=== PATIENT | male | born 1955 | race Caucasian/White ===

== ENCOUNTER 2019-07-22 13:50 | Day surgery (SDC) | payer SELFPAY ==
[~2019-07-22] VITALS: Ht 175.3 cm; Wt 82.9 kg
[~2019-07-22 13:50] MED LIST: ASPI325 PO; Adult Low Dose81 MG PO; Aspir 8181 MG PO; CARV6.25 PO; Catapres0.1 MG PO; DEXL60CA3; INSLIS75I; LISI20 PO; LOSA25 PO; Prinivil10 MG PO; SPIR25 PO; ZESTORETIC 20-121 EA PO
[2019-07-22] MEDS ORDERED: Prinivil10 MG (15:12)
[2019-07-22] MEDS ORDERED: OMEPRAZOLE20 M1 PO (15:13)
== END 2019-07-22 17:37 | disposition home or self-care (01) ==
LOC: ORSCSDS 13:50
PROVIDERS: Student in an Organized Health Care Education/Training Program
PROC: 3E0H8GC Introduction of Other Therapeutic Substance into Lower GI, Via Natural or Artificial Opening Endoscopic (ICD-10-PCS; principal; 2019-07-22 15:15)
PROC: 0DBN8ZX Excision of Sigmoid Colon, Via Natural or Artificial Opening Endoscopic, Diagnostic (ICD-10-PCS; principal; 2019-07-22 15:15)
DX: R93.5 Abnormal findings on diagnostic imaging of other abdominal regions, including retroperitoneum (principal); D12.5 Benign neoplasm of sigmoid colon; K57.30 Diverticulosis of large intestine without perforation or abscess without bleeding; K64.8 Other hemorrhoids; I10 Essential (primary) hypertension; K21.9 Gastro-esophageal reflux disease without esophagitis; Z79.899 Other long term (current) drug therapy; Z79.82 Long term (current) use of aspirin
CPT/HCPCS: 88305; J2704; J7120

== ENCOUNTER 2019-11-23 02:17 | Day surgery (SDC) | payer SELFPAY ==
[~2019-11-23 02:17] MED LIST changes: +OMEPRAZOLE20 M1 PO; +Prinivil10 MG
[2019-11-23] MEDS ORDERED: RILUZOLE50 MG PO (10:17)
[2019-11-23] MEDS ORDERED: Robaxin750 MG PO (10:17)
== END 2019-11-23 09:52 | disposition home or self-care (01) ==
LOC: ATC 02:17
DX: A44.0 Systemic bartonellosis (principal); A69.20 Lyme disease, unspecified; G12.21 Amyotrophic lateral sclerosis; M62.81 Muscle weakness (generalized); R13.10 Dysphagia, unspecified; R25.3 Fasciculation; Z88.8 Allergy status to other drugs, medicaments and biological substances; Z79.899 Other long term (current) drug therapy
CPT/HCPCS: 99212

== ENCOUNTER 2019-11-28 11:53 | Observation (INO) | payer SELFPAY ==
[~2019-11-28] VITALS: Ht 175.3 cm; Wt 78.4 kg
[~2019-11-28 11:53] MED LIST changes: -Prinivil10 MG; +RILUZOLE50 MG PO; +Robaxin750 MG PO
[2019-11-28 12:31] LABS: BASOPHILS ABSOLUTE AUTO 0.01 K/mm3 (0.00-0.23); BASOPHILS PERCENT AUTO 0 % (0-2); EOSINOPHILS PERCENT AUTO 0 % (0-6); Hematocrit 44.9 % (37.0-53.0); IMMATURE GRAN ABSOLUTE AUTO 0.05 K/mm3 (0.00-0.10); IMMATURE GRAN PERCENT AUTO 0 % (0-1); LYMPHOCYTES ABSOLUTE AUTO 2.01 K/mm3 (0.84-5.20); LYMPHOCYTES PERCENT AUTO 12 % (21-46); MONOCYTES ABSOLUTE AUTO 0.81 K/mm3 (0.16-1.47); MONOCYTES PERCENT AUTO 5 % (4-13); Mean Corpuscular HGB 31.6 pg (26.0-34.0); Mean Corpuscular HGB Conc 33.4 g/dL (31.5-36.5); Mean Corpuscular Volume 95 fL (80-100); Mean Platelet Volume 9.5 fL (9.1-12.4); NEUTROPHILS ABSOLUTE AUTO 13.43 K/mm3 (1.96-9.15); NEUTROPHILS PERCENT AUTO 82 % (41-73); Platelet Count 400 K/mm3 (150-400); RDW Coefficient Variation 13.2 % (11.7-14.2); RDW Standard Deviation 46.6 fL (35.1-46.3); Red Blood Cell Count 4.75 M/mm3 (4.30-5.90); White Blood Cell Count 16.31 K/mm3 (4.00-11.30)
[2019-11-28 12:47] LABS: Alanine Aminotransfer (ALT/SGP 34 U/L (12-78); Albumin, Blood 3.2 g/dL (3.4-5.0); Albumin/Globulin Ratio 0.9 (0.8-1.8); Alk Phos 85 U/L (50-136); Anion Gap 4 mmol/L (6-16); Aspartate Aminotrans (AST/SGOT 23 U/L (12-37); Bilirubin, Total 0.6 mg/dL (0.1-1.0); Blood Urea Nitrogen 18 mg/dL (8-24); Bun/Creatinine Ratio 26.5 (12.0-20.0); CO2, Blood 34 mmol/L (21-32); Calcium, Blood 9.4 mg/dL (8.5-10.1); Chloride, Blood 99 mmol/L (98-108); Creatinine, Blood 0.68 mg/dL (0.60-1.20); Globulin, Blood 3.6 g/dL (2.2-4.0); Glomerular Filtration Rate >60 (60-); Glucose, Blood 95 mg/dL (70-99); Potassium, Blood 4.1 mmol/L (3.5-5.5); Sodium, Blood 137 mmol/L (136-145); Total Protein, Blood 6.8 g/dL (6.4-8.2)
[2019-11-28] MEDS ORDERED: CYCL10 PO (13:18)
[2019-11-28 15:35] LABS: International Normalized Ratio 1.11; Prothrombin Time Results 11.8 Sec (9.7-11.5)
[2019-11-28] MEDS ORDERED: CLON.1 PO (16:34)
[2019-11-28] MEDS ORDERED: MIRT15 PO (16:35)
[2019-11-28] MEDS ORDERED: NYST100000 SS (16:36)
--- NOTE | 2019-11-29 06:45 | NUR ---
SHIFT SUMMARY PT WAS A NEW ADMIT DURING THE NIGHT, ARRIVING ON THE FLOOR AT 1943. PT WAS ADMITTED FOR WORSENING DYSPHAGIA R/T A HX OF ALS, AND IS WAITING FOR A PEG TUBE PLACEMENT. HE IS A&O X 3, AND A SBA/INDEPENDENT IN THE ROOM. PT DENIED ANY COMPLAINTS OF PAIN, NAUSEA OR SOB DURING THE NIGHT. PT'S BP WAS ELEVATED DURING THE NIGHT, IN THE 180S SYSTOLICALLY DURING AM VITALS. PT WILL BE MEDICATED WITH PRN HYDRALAZINE FOR BP. ALL OTHER VITALS STABLE. PT RECEIVED ONE BAG CLINIMIX DURING THE NIGHT. PT'S SON REMAINED AT BEDSIDE THROUGH THE NIGHT. THE PT'S SON AND WITNESSED THE PT'S ADVANCED DIRECTIVE, AND A COPY PLACED IN THE CHART. NO OTHER ACUTE CHANGES IN PT CONDITION NOTED. WILL CONTINUE TO MONITOR AND TREAT PER EMAR UNTIL HAND OFF TO DAY SHIFT RN.
--- NOTE | 2019-11-29 09:53 | NUR ---
PT INTO STEP VIA BED FROM RADIOLOGY. VSS. NO C/O PAIN OR NAUSEA. PT LYING ON RIDE SIDE AND STATES COMFORT. DENIES FOOD AND DRINK AT THIS TIME AT BEDSIDE. WILL CONTINUE TO MONITOR.
--- NOTE | 2019-11-29 12:40 | NUR ---
Initial palliative care consult: Met with Bobby and his Michelle in his room this afternoon. They are waiting for him to go to surgery for a PEG tube placement this afternoon. He has a history of ALS, TIA, SHANELLE, HTN, GERD and he has lost the ability to swallow recently. His neurologist suggested that he have a PEG tube placed for nutrition. Bobby filled out an AD yesterday with his wishes and a copy of this is on the chart. Michelle will be his health care accounting representative. Discussed option of filling out a POLST form as well as this is why PC received a PC referral. POLST education given with questions answered. They are very hesitant to fill out the POLST and at this time are declining to fill one out. He wishes to maintain his full code status. He stated that his knows what he wants as the AD was completed yesterday. He reports that as his ALS progresses he may consider filling out a POLST but not at this time. Praised him for completing the AD which his reports he has been hesitant to do until yesterday. They were polite but dismissive of this underwriter mortgage loan. They are awaiting his PEG placement. PC will remain available.
--- NOTE | 2019-11-29 14:32 | NUR ---
TACHYCARDIA NOTED, THREE LEAD EKG PRINTED FOR ANESTHESIOLGIST TO REVIEW. PATIENT DENIES CHEST PAIN, SOB OR LIGHTHEADEDNESS. NO C/O VERBALIZED EXCEPT FOR CHRONIC DISCOMFORT TO MOUTH AND THROAT. AND SON AT BEDSIDE. REPORT GIVEN TO AGGIE MARTINEZ RN.
--- NOTE | 2019-11-29 15:14 | NUR ---
11/29/19 1514 ZORAN KENNEDY History, Chart, Medications and Allergies reviewed before start of procedure. 3-LEAD EKG REVIEWED WITH PHYSICIAN PRIOR TO START OF PROCEDURE. O2 VIA N/C INTACT THROUGHOUT SEDATION/PROCEDURE. MONITOR INTACT WITH CONTINUOUS PULSE OXIMETRY AND INTERMITTENT BP. MAC WITH DR. TEJEDA.
--- NOTE | 2019-11-29 18:31 | NUR ---
PATIENT STARTED OUT THE SHIFT WITH EXTREME HYPERTENSION. IT TOOK SEVERAL DOSES AND DOSE INCREASES TO GET HIS BP WITHIN NORMAL LIMITS AND STABLE ENOUGH TO PROCEED WITH THE PEG TUBE PLACEMENT. THE PATIENT RETURNED FROM THE PROCEEDURE AT APPROX 1600 AND WAS IN EXTREME PAIN. DR TOVAR WAS NOTIFIED AT 1620 AND ORDERS GIVEN TO GIVE THE PATIENT FENTANYL 25-50MCG Q4HR PRN. THE FIRST 25MCGs WERE GIVEN WITHOUT MUCH EFFECTIVENESS. THE SECOND WAS THEN GIVEN WITH THE SAME INEFFECTIVENESS. I CALLED DR TOVAR AGAIN TO INFORM HER OF THIS AND SHE SUGGESTED I CALL DR WHEELER, THE SURGEON INSTEAD. DR WHEELER CALLED AND NOTIFIED OF THE SITUATION AND PROVIDED ORDERS TO ADMIISTER 1-2MG IV DILAUDID Q2 PRN. 1MG GIVEN PER EMAR WITH EFFECTIVENESS. BOTH DR WHEELER AND DR TOVAR INFORMED THAT PATIENT DOES NOT INTEND TO DISCHARGE HOME TONIGHT. DR WHEELER STATED TO START THE PATIENT ON CONTINUOUS FEEDS STARTING AT 10ml/HR BETWEEN [id number]. THIS WAS EXPLAINED TO THE FAMILY, THEY UNDERSTAND THE ARRANGEMENT. PATIENT IS NOW DOZING OFF IN HIS BED. VITALS CONTINUE PER POST-OP. WILL CONTINUE TO MONITOR AND PROVIDE CARE NEEDED.
--- NOTE | 2019-11-29 21:53 | NUR ---
TUBE FEEDING STARTED NOW AT A RATE OF 10 ML/HR WITH 20 ML FLUSH EVERY 2 HOURS. PATIENT'S HEAD ELEVATED.
--- NOTE | 2019-11-30 07:44 | NUR ---
SHIFT SUMMARY PATIENT ALERT AND ORIENTED. SLEPT MOST OF THE NIGHT. ONLY MEDICATED ONCE PER EMAR FOR PAIN. TUBE FEEDING STARTED, PATIENT TOLERATING WELL, CURRENTLY RUNNING AT 30 ML/HR. IV AND PICC PATENT AND FLUSHED. BED IN LOWEST POSITION WITH WHEELS LOCKED. CALL LIGHT WITHIN REACH. REPORT GIVEN TO ONCOMING DELROY.
--- NOTE | 2019-11-30 12:27 | NUR ---
DISCHARGE INSTRUCTIONS EXPLAINED TO PATIENT, PATIENTS AND SON. EDUCATIONAL MATERIAL PROVIDED REGARDING TUBE FEEDS AND CARE FOR PEG TUBES. PATIENT, AND SON WERE INSTRUCTED AND DEMONSTRATED HOW TO GIVE A BOLUS FEED WITH A FLUSH AND DID VERY WELL. DRESSING TO PEG TUBE SITE CHANGED. ALL QUESTIONS ANSWERED. PATIENT LEFT HOME WITH AND SON AT 1208 WITH ASSISTANCE OF WHEELCHAIR AND TRACK INSPECTING SUPERVISOR.
[2019-12-04] MEDS ORDERED: BENADRYL25 MG PO (15:27)
[2019-12-04] MEDS ORDERED: ASPI81CH PO (15:27)
[2019-12-04] MEDS ORDERED: Miralax17 GM PT (17:00)
== END 2019-11-30 12:08 | disposition home or self-care (01) ==
LOC: ER 11:53 → ERHOLD 11:54 → MEDS 11:54 → ENPENDDIS 11-30 11:00 → MEDS 11-30 12:08
PROVIDERS: Physician Assistant; Surgery; ADMIT Hospitalist
PROC: 0DH63UZ Insertion of Feeding Device into Stomach, Percutaneous Approach (ICD-10-PCS; principal; 2019-11-29 15:00)
DX: G12.21 Amyotrophic lateral sclerosis (principal); K26.9 Duodenal ulcer, unspecified as acute or chronic, without hemorrhage or perforation; K21.9 Gastro-esophageal reflux disease without esophagitis; I10 Essential (primary) hypertension; G47.33 Obstructive sleep apnea (adult) (pediatric); Z66 Do not resuscitate; Z79.82 Long term (current) use of aspirin; Z79.899 Other long term (current) drug therapy; Z86.73 Personal history of transient ischemic attack (TIA), and cerebral infarction without residual deficits; Z88.8 Allergy status to other drugs, medicaments and biological substances
CPT/HCPCS: 71046; 80053; 85025; 85610; 93005; 93010; 96361; 96365; 96366; 96375; 96376; 99285-25; C1769; G0378; J0360; J1170; J2704; J3010; J7030

== ENCOUNTER 2019-12-05 22:30 | Emergency (ER) | payer SELFPAY ==
[~2019-12-05] VITALS: Ht 175.3 cm; Wt 74.8 kg
[~2019-12-05 22:30] MED LIST changes: +ASPI81CH PO; +BENADRYL25 MG PO; +CLON.1 PO; +CYCL10 PO; +MIRT15 PO; +Miralax17 GM PT; +NYST100000 SS
== END 2019-12-06 02:06 | disposition home or self-care (01) ==
LOC: ER 22:30
DX: K59.00 Constipation, unspecified (principal); I10 Essential (primary) hypertension; K21.9 Gastro-esophageal reflux disease without esophagitis; Z79.899 Other long term (current) drug therapy
CPT/HCPCS: 51701; 51798; 74018; 99283-25

== ENCOUNTER 2019-12-07 00:22 | Day surgery (SDC) | payer SELFPAY | END 2019-12-07 11:43 | disposition home or self-care (01) | LOC: ATC 00:22 | DX: A44.0 Systemic bartonellosis (principal); A69.20 Lyme disease, unspecified; G12.21 Amyotrophic lateral sclerosis; M62.81 Muscle weakness (generalized); R13.10 Dysphagia, unspecified; R25.3 Fasciculation; Z88.8 Allergy status to other drugs, medicaments and biological substances; Z79.899 Other long term (current) drug therapy | CPT/HCPCS: 99211 ==

== ENCOUNTER 2019-12-13 00:43 | Day surgery (SDC) | payer SELFPAY | END 2019-12-13 11:29 | disposition home or self-care (01) | LOC: ATC 00:43 | DX: A44.0 Systemic bartonellosis (principal); A69.20 Lyme disease, unspecified; G12.21 Amyotrophic lateral sclerosis; M62.81 Muscle weakness (generalized); R13.10 Dysphagia, unspecified; R25.3 Fasciculation; Z88.8 Allergy status to other drugs, medicaments and biological substances; Z79.899 Other long term (current) drug therapy | CPT/HCPCS: 99211 ==

== ENCOUNTER 2020-02-05 05:43 | Emergency (ER) | payer SELFPAY ==
[~2020-02-05] VITALS: Ht 175.3 cm; Wt 81.7 kg
[2020-02-05 06:25] LABS: BASOPHILS ABSOLUTE AUTO 0.03 K/mm3 (0.00-0.23); BASOPHILS PERCENT AUTO 0 % (0-2); EOSINOPHILS ABSOLUTE AUTO 0.07 K/mm3 (0.00-0.68); EOSINOPHILS PERCENT AUTO 1 % (0-6); Hematocrit 41.7 % (37.0-53.0); Hemoglobin 13.4 g/dL (13.5-17.5); IMMATURE GRAN ABSOLUTE AUTO 0.03 K/mm3 (0.00-0.10); IMMATURE GRAN PERCENT AUTO 0 % (0-1); LYMPHOCYTES ABSOLUTE AUTO 1.51 K/mm3 (0.84-5.20); LYMPHOCYTES PERCENT AUTO 20 % (21-46); MONOCYTES ABSOLUTE AUTO 0.72 K/mm3 (0.16-1.47); MONOCYTES PERCENT AUTO 9 % (4-13); Mean Corpuscular HGB 31.9 pg (26.0-34.0); Mean Corpuscular HGB Conc 32.1 g/dL (31.5-36.5); Mean Corpuscular Volume 99 fL (80-100); Mean Platelet Volume 9.4 fL (9.1-12.4); NEUTROPHILS ABSOLUTE AUTO 5.37 K/mm3 (1.96-9.15); NEUTROPHILS PERCENT AUTO 70 % (41-73); Platelet Count 412 K/mm3 (150-400); RDW Coefficient Variation 15.9 % (11.7-14.2); RDW Standard Deviation 57.8 fL (35.1-46.3); White Blood Cell Count 7.73 K/mm3 (4.00-11.30)
[2020-02-05] MEDS ORDERED: TYGACIL (06:27)
[2020-02-05] MEDS ORDERED: RIFADIN IV (06:27)
[2020-02-05 06:40] LABS: Alanine Aminotransfer (ALT/SGP 68 U/L (12-78); Albumin, Blood 2.6 g/dL (3.4-5.0); Albumin/Globulin Ratio 0.8 (0.8-1.8); Alk Phos 57 U/L (50-136); Anion Gap 4 mmol/L (6-16); Aspartate Aminotrans (AST/SGOT 27 U/L (12-37); Bilirubin, Total 0.5 mg/dL (0.1-1.0); Blood Urea Nitrogen 9 mg/dL (8-24); Bun/Creatinine Ratio 13.2 (12.0-20.0); CO2, Blood 33 mmol/L (21-32); Calcium, Blood 8.8 mg/dL (8.5-10.1); Chloride, Blood 102 mmol/L (98-108); Creatinine, Blood 0.68 mg/dL (0.60-1.20); Globulin, Blood 3.4 g/dL (2.2-4.0); Glomerular Filtration Rate >60 (60-); Glucose, Blood 127 mg/dL (70-99); Sodium, Blood 139 mmol/L (136-145)
[2020-02-05 08:20] LABS: PCO2 Arterial 53.5 mmHg (35-45); PO2 Arterial 94.1 mmHg (80-100)
== END 2020-02-05 09:05 | disposition home or self-care (01) ==
LOC: ER 05:43
PROVIDERS: Emergency Medicine
DX: R06.02 Shortness of breath (principal); G12.21 Amyotrophic lateral sclerosis; I10 Essential (primary) hypertension; K21.9 Gastro-esophageal reflux disease without esophagitis; G47.33 Obstructive sleep apnea (adult) (pediatric); Z86.73 Personal history of transient ischemic attack (TIA), and cerebral infarction without residual deficits; Z79.899 Other long term (current) drug therapy
CPT/HCPCS: 36600; 71046; 80053; 82803; 85025; 93005; 93010; 99285-25

== ENCOUNTER 2020-02-07 00:09 | Day surgery (SDC) | payer SELFPAY ==
[~2020-02-07 00:09] MED LIST changes: +RIFADIN IV; +TYGACIL
[2020-02-07 12:23] LABS: BASOPHILS ABSOLUTE AUTO 0.05 K/mm3 (0.00-0.23); BASOPHILS PERCENT AUTO 1 % (0-2); EOSINOPHILS ABSOLUTE AUTO 0.04 K/mm3 (0.00-0.68); EOSINOPHILS PERCENT AUTO 1 % (0-6); Hematocrit 42.9 % (37.0-53.0); Hemoglobin 13.8 g/dL (13.5-17.5); IMMATURE GRAN ABSOLUTE AUTO 0.01 K/mm3 (0.00-0.10); IMMATURE GRAN PERCENT AUTO 0 % (0-1); LYMPHOCYTES ABSOLUTE AUTO 1.42 K/mm3 (0.84-5.20); LYMPHOCYTES PERCENT AUTO 22 % (21-46); MONOCYTES ABSOLUTE AUTO 0.42 K/mm3 (0.16-1.47); MONOCYTES PERCENT AUTO 6 % (4-13); Mean Corpuscular HGB 32.3 pg (26.0-34.0); Mean Corpuscular HGB Conc 32.2 g/dL (31.5-36.5); Mean Corpuscular Volume 101 fL (80-100); Mean Platelet Volume 10.2 fL (9.1-12.4); NEUTROPHILS ABSOLUTE AUTO 4.58 K/mm3 (1.96-9.15); NEUTROPHILS PERCENT AUTO 70 % (41-73); Platelet Count 430 K/mm3 (150-400); RDW Coefficient Variation 15.6 % (11.7-14.2); RDW Standard Deviation 57.6 fL (35.1-46.3); Red Blood Cell Count 4.27 M/mm3 (4.30-5.90); White Blood Cell Count 6.52 K/mm3 (4.00-11.30)
[2020-02-07 12:42] LABS: Alanine Aminotransfer (ALT/SGP 103 U/L (12-78); Albumin, Blood 2.7 g/dL (3.4-5.0); Albumin/Globulin Ratio 0.8 (0.8-1.8); Alk Phos 60 U/L (50-136); Anion Gap 6 mmol/L (6-16); Aspartate Aminotrans (AST/SGOT 39 U/L (12-37); Bilirubin, Total 0.4 mg/dL (0.1-1.0); Blood Urea Nitrogen 12 mg/dL (8-24); Bun/Creatinine Ratio 18.7 (12.0-20.0); CO2, Blood 33 mmol/L (21-32); Calcium, Blood 8.5 mg/dL (8.5-10.1); Chloride, Blood 100 mmol/L (98-108); Creatinine, Blood 0.64 mg/dL (0.60-1.20); Globulin, Blood 3.5 g/dL (2.2-4.0); Glomerular Filtration Rate >60 (60-); Glucose, Blood 145 mg/dL (70-99); Potassium, Blood 3.9 mmol/L (3.5-5.5); Sodium, Blood 139 mmol/L (136-145); Total Protein, Blood 6.2 g/dL (6.4-8.2)
== END 2020-02-07 12:06 | disposition home or self-care (01) ==
LOC: ATC 00:09
PROVIDERS: Naturopath
DX: G12.21 Amyotrophic lateral sclerosis (principal); D64.9 Anemia, unspecified; Z88.8 Allergy status to other drugs, medicaments and biological substances; A44.9 Bartonellosis, unspecified; A69.20 Lyme disease, unspecified
CPT/HCPCS: 36592; 80053; 85025

== ENCOUNTER 2020-02-14 01:09 | Day surgery (SDC) | payer SELFPAY ==
[2020-02-14 12:47] LABS: BASOPHILS ABSOLUTE AUTO 0.03 K/mm3 (0.00-0.23); BASOPHILS PERCENT AUTO 0 % (0-2); EOSINOPHILS ABSOLUTE AUTO 0.02 K/mm3 (0.00-0.68); EOSINOPHILS PERCENT AUTO 0 % (0-6); Hematocrit 44.4 % (37.0-53.0); Hemoglobin 14.2 g/dL (13.5-17.5); IMMATURE GRAN ABSOLUTE AUTO 0.04 K/mm3 (0.00-0.10); IMMATURE GRAN PERCENT AUTO 1 % (0-1); LYMPHOCYTES ABSOLUTE AUTO 1.18 K/mm3 (0.84-5.20); LYMPHOCYTES PERCENT AUTO 15 % (21-46); MONOCYTES ABSOLUTE AUTO 0.48 K/mm3 (0.16-1.47); MONOCYTES PERCENT AUTO 6 % (4-13); Mean Corpuscular HGB 32.5 pg (26.0-34.0); Mean Corpuscular Volume 102 fL (80-100); Mean Platelet Volume 10.2 fL (9.1-12.4); NEUTROPHILS ABSOLUTE AUTO 6.35 K/mm3 (1.96-9.15); NEUTROPHILS PERCENT AUTO 78 % (41-73); Platelet Count 412 K/mm3 (150-400); RDW Standard Deviation 56.7 fL (35.1-46.3); Red Blood Cell Count 4.37 M/mm3 (4.30-5.90)
[2020-02-14 13:09] LABS: Alanine Aminotransfer (ALT/SGP 57 U/L (12-78); Albumin, Blood 2.8 g/dL (3.4-5.0); Albumin/Globulin Ratio 0.8 (0.8-1.8); Alk Phos 54 U/L (50-136); Anion Gap 2 mmol/L (6-16); Aspartate Aminotrans (AST/SGOT 21 U/L (12-37); Bilirubin, Total 0.3 mg/dL (0.1-1.0); Blood Urea Nitrogen 13 mg/dL (8-24); CO2, Blood 36 mmol/L (21-32); Calcium, Blood 8.7 mg/dL (8.5-10.1); Chloride, Blood 102 mmol/L (98-108); Creatinine, Blood 0.69 mg/dL (0.60-1.20); Globulin, Blood 3.5 g/dL (2.2-4.0); Glomerular Filtration Rate >60 (60-); Glucose, Blood 116 mg/dL (70-99); Potassium, Blood 4.2 mmol/L (3.5-5.5); Sodium, Blood 140 mmol/L (136-145); Total Protein, Blood 6.3 g/dL (6.4-8.2)
[2020-02-15 22:09] LABS: FREE TESTOSTERONE(DIRECT) 5.8 pg/mL (6.6-18.1); TESTOSTERONE, SERUM 1037 ng/dL (264-916)
== END 2020-02-14 17:16 | disposition home or self-care (01) ==
LOC: ATC 01:09
PROVIDERS: Naturopath
DX: A69.20 Lyme disease, unspecified (principal); G12.21 Amyotrophic lateral sclerosis; M62.81 Muscle weakness (generalized); R25.3 Fasciculation; Z88.8 Allergy status to other drugs, medicaments and biological substances; Z79.82 Long term (current) use of aspirin; Z79.899 Other long term (current) drug therapy
CPT/HCPCS: 80053; 85025; 99211

== ENCOUNTER 2020-02-21 00:48 | Day surgery (SDC) | payer SELFPAY ==
[2020-02-21 11:57] LABS: BASOPHILS ABSOLUTE AUTO 0.04 K/mm3 (0.00-0.23); BASOPHILS PERCENT AUTO 1 % (0-2); EOSINOPHILS ABSOLUTE AUTO 0.03 K/mm3 (0.00-0.68); EOSINOPHILS PERCENT AUTO 0 % (0-6); Hematocrit 46.5 % (37.0-53.0); IMMATURE GRAN ABSOLUTE AUTO 0.05 K/mm3 (0.00-0.10); IMMATURE GRAN PERCENT AUTO 1 % (0-1); LYMPHOCYTES ABSOLUTE AUTO 1.15 K/mm3 (0.84-5.20); LYMPHOCYTES PERCENT AUTO 13 % (21-46); MONOCYTES ABSOLUTE AUTO 0.56 K/mm3 (0.16-1.47); MONOCYTES PERCENT AUTO 6 % (4-13); Mean Corpuscular HGB 32.5 pg (26.0-34.0); Mean Corpuscular HGB Conc 32.3 g/dL (31.5-36.5); Mean Corpuscular Volume 101 fL (80-100); Mean Platelet Volume 10.5 fL (9.1-12.4); NEUTROPHILS ABSOLUTE AUTO 6.97 K/mm3 (1.96-9.15); NEUTROPHILS PERCENT AUTO 79 % (41-73); Platelet Count 346 K/mm3 (150-400); RDW Coefficient Variation 14.7 % (11.7-14.2); RDW Standard Deviation 55.5 fL (35.1-46.3); Red Blood Cell Count 4.61 M/mm3 (4.30-5.90)
[2020-02-21 12:13] LABS: Alanine Aminotransfer (ALT/SGP 31 U/L (12-78); Albumin, Blood 2.8 g/dL (3.4-5.0); Albumin/Globulin Ratio 0.8 (0.8-1.8); Alk Phos 54 U/L (50-136); Anion Gap 6 mmol/L (6-16); Aspartate Aminotrans (AST/SGOT 17 U/L (12-37); Bilirubin, Total 0.3 mg/dL (0.1-1.0); Blood Urea Nitrogen 15 mg/dL (8-24); Bun/Creatinine Ratio 20.8 (12.0-20.0); CO2, Blood 32 mmol/L (21-32); Calcium, Blood 8.6 mg/dL (8.5-10.1); Chloride, Blood 102 mmol/L (98-108); Creatinine, Blood 0.72 mg/dL (0.60-1.20); Globulin, Blood 3.6 g/dL (2.2-4.0); Glomerular Filtration Rate >60 (60-); Glucose, Blood 77 mg/dL (70-99); Potassium, Blood 4.1 mmol/L (3.5-5.5); Sodium, Blood 140 mmol/L (136-145); Total Protein, Blood 6.4 g/dL (6.4-8.2)
== END 2020-02-21 10:58 | disposition home or self-care (01) ==
LOC: ATC 00:48
PROVIDERS: Naturopath
DX: A44.9 Bartonellosis, unspecified (principal); A69.20 Lyme disease, unspecified; G12.21 Amyotrophic lateral sclerosis; R25.3 Fasciculation; R13.10 Dysphagia, unspecified; Z88.8 Allergy status to other drugs, medicaments and biological substances; Z79.899 Other long term (current) drug therapy
CPT/HCPCS: 36592; 80053; 85025

== ENCOUNTER 2020-02-28 00:22 | Day surgery (SDC) | payer SELFPAY ==
[2020-02-28 13:37] LABS: BASOPHILS ABSOLUTE AUTO 0.03 K/mm3 (0.00-0.23); BASOPHILS PERCENT AUTO 0 % (0-2); EOSINOPHILS ABSOLUTE AUTO 0.04 K/mm3 (0.00-0.68); EOSINOPHILS PERCENT AUTO 0 % (0-6); Hemoglobin 15.1 g/dL (13.5-17.5); IMMATURE GRAN ABSOLUTE AUTO 0.04 K/mm3 (0.00-0.10); IMMATURE GRAN PERCENT AUTO 0 % (0-1); LYMPHOCYTES ABSOLUTE AUTO 1.21 K/mm3 (0.84-5.20); LYMPHOCYTES PERCENT AUTO 12 % (21-46); MONOCYTES ABSOLUTE AUTO 0.47 K/mm3 (0.16-1.47); MONOCYTES PERCENT AUTO 5 % (4-13); Mean Corpuscular HGB 32.5 pg (26.0-34.0); Mean Corpuscular HGB Conc 32.1 g/dL (31.5-36.5); Mean Corpuscular Volume 101 fL (80-100); Mean Platelet Volume 11.1 fL (9.1-12.4); NEUTROPHILS ABSOLUTE AUTO 8.25 K/mm3 (1.96-9.15); NEUTROPHILS PERCENT AUTO 82 % (41-73); Platelet Count 335 K/mm3 (150-400); RDW Coefficient Variation 14.5 % (11.7-14.2); RDW Standard Deviation 53.9 fL (35.1-46.3); Red Blood Cell Count 4.64 M/mm3 (4.30-5.90); White Blood Cell Count 10.04 K/mm3 (4.00-11.30)
[2020-02-28 13:51] LABS: Alanine Aminotransfer (ALT/SGP 26 U/L (12-78); Albumin, Blood 2.9 g/dL (3.4-5.0); Albumin/Globulin Ratio 0.8 (0.8-1.8); Alk Phos 58 U/L (50-136); Anion Gap 4 mmol/L (6-16); Aspartate Aminotrans (AST/SGOT 18 U/L (12-37); Bilirubin, Total 0.4 mg/dL (0.1-1.0); Blood Urea Nitrogen 12 mg/dL (8-24); Bun/Creatinine Ratio 18.5 (12.0-20.0); CO2, Blood 33 mmol/L (21-32); Calcium, Blood 8.9 mg/dL (8.5-10.1); Chloride, Blood 101 mmol/L (98-108); Creatinine, Blood 0.65 mg/dL (0.60-1.20); Globulin, Blood 3.6 g/dL (2.2-4.0); Glomerular Filtration Rate >60 (60-); Glucose, Blood 78 mg/dL (70-99); Sodium, Blood 138 mmol/L (136-145); Total Protein, Blood 6.5 g/dL (6.4-8.2)
== END 2020-02-28 11:45 | disposition home or self-care (01) ==
LOC: ATC 00:22
PROVIDERS: Naturopath
DX: E29.1 Testicular hypofunction (principal); Z88.8 Allergy status to other drugs, medicaments and biological substances; Z79.82 Long term (current) use of aspirin; Z79.899 Other long term (current) drug therapy
CPT/HCPCS: 36592; 80053; 85025

== ENCOUNTER 2020-03-06 00:25 | Day surgery (SDC) | payer SELFPAY ==
[2020-03-06 12:32] LABS: BASOPHILS ABSOLUTE AUTO 0.03 K/mm3 (0.00-0.23); BASOPHILS PERCENT AUTO 0 % (0-2); EOSINOPHILS ABSOLUTE AUTO 0.04 K/mm3 (0.00-0.68); EOSINOPHILS PERCENT AUTO 0 % (0-6); Hematocrit 46.6 % (37.0-53.0); Hemoglobin 14.9 g/dL (13.5-17.5); IMMATURE GRAN ABSOLUTE AUTO 0.04 K/mm3 (0.00-0.10); IMMATURE GRAN PERCENT AUTO 0 % (0-1); LYMPHOCYTES ABSOLUTE AUTO 1.56 K/mm3 (0.84-5.20); LYMPHOCYTES PERCENT AUTO 16 % (21-46); MONOCYTES ABSOLUTE AUTO 0.58 K/mm3 (0.16-1.47); MONOCYTES PERCENT AUTO 6 % (4-13); Mean Corpuscular Volume 100 fL (80-100); Mean Platelet Volume 10.8 fL (9.1-12.4); NEUTROPHILS ABSOLUTE AUTO 7.72 K/mm3 (1.96-9.15); NEUTROPHILS PERCENT AUTO 78 % (41-73); Platelet Count 342 K/mm3 (150-400); RDW Coefficient Variation 14.2 % (11.7-14.2); RDW Standard Deviation 52.7 fL (35.1-46.3); Red Blood Cell Count 4.65 M/mm3 (4.30-5.90); White Blood Cell Count 9.97 K/mm3 (4.00-11.30)
[2020-03-06 12:52] LABS: Alanine Aminotransfer (ALT/SGP 27 U/L (12-78); Albumin, Blood 2.8 g/dL (3.4-5.0); Albumin/Globulin Ratio 0.8 (0.8-1.8); Alk Phos 59 U/L (50-136); Anion Gap 2 mmol/L (6-16); Aspartate Aminotrans (AST/SGOT 20 U/L (12-37); Bilirubin, Total 0.3 mg/dL (0.1-1.0); Blood Urea Nitrogen 14 mg/dL (8-24); Bun/Creatinine Ratio 18.9 (12.0-20.0); CO2, Blood 35 mmol/L (21-32); Calcium, Blood 8.4 mg/dL (8.5-10.1); Chloride, Blood 102 mmol/L (98-108); Creatinine, Blood 0.74 mg/dL (0.60-1.20); Globulin, Blood 3.6 g/dL (2.2-4.0); Glomerular Filtration Rate >60 (60-); Glucose, Blood 82 mg/dL (70-99); Potassium, Blood 4.1 mmol/L (3.5-5.5); Sodium, Blood 139 mmol/L (136-145); Total Protein, Blood 6.4 g/dL (6.4-8.2)
== END 2020-03-06 11:30 | disposition home or self-care (01) ==
LOC: ATC 00:25
PROVIDERS: Naturopath
DX: E29.1 Testicular hypofunction (principal); Z88.8 Allergy status to other drugs, medicaments and biological substances; Z79.899 Other long term (current) drug therapy; Z86.73 Personal history of transient ischemic attack (TIA), and cerebral infarction without residual deficits
CPT/HCPCS: 36592; 80053; 82670; 85025

== ENCOUNTER 2020-03-13 01:21 | Day surgery (SDC) | payer SELFPAY ==
[2020-03-13 11:52] LABS: BASOPHILS ABSOLUTE AUTO 0.03 K/mm3 (0.00-0.23); BASOPHILS PERCENT AUTO 0 % (0-2); EOSINOPHILS ABSOLUTE AUTO 0.04 K/mm3 (0.00-0.68); EOSINOPHILS PERCENT AUTO 0 % (0-6); Hematocrit 45.7 % (37.0-53.0); Hemoglobin 14.7 g/dL (13.5-17.5); IMMATURE GRAN ABSOLUTE AUTO 0.04 K/mm3 (0.00-0.10); IMMATURE GRAN PERCENT AUTO 0 % (0-1); LYMPHOCYTES ABSOLUTE AUTO 1.64 K/mm3 (0.84-5.20); LYMPHOCYTES PERCENT AUTO 16 % (21-46); MONOCYTES ABSOLUTE AUTO 0.72 K/mm3 (0.16-1.47); MONOCYTES PERCENT AUTO 7 % (4-13); Mean Corpuscular HGB 32.5 pg (26.0-34.0); Mean Corpuscular HGB Conc 32.2 g/dL (31.5-36.5); Mean Corpuscular Volume 101 fL (80-100); Mean Platelet Volume 10.1 fL (9.1-12.4); NEUTROPHILS ABSOLUTE AUTO 7.83 K/mm3 (1.96-9.15); NEUTROPHILS PERCENT AUTO 76 % (41-73); Platelet Count 341 K/mm3 (150-400); RDW Coefficient Variation 14.6 % (11.7-14.2); RDW Standard Deviation 54.8 fL (35.1-46.3); Red Blood Cell Count 4.53 M/mm3 (4.30-5.90)
[2020-03-13 12:00] LABS: Alanine Aminotransfer (ALT/SGP 25 U/L (12-78); Albumin, Blood 2.8 g/dL (3.4-5.0); Albumin/Globulin Ratio 0.8 (0.8-1.8); Alk Phos 58 U/L (50-136); Anion Gap 3 mmol/L (6-16); Aspartate Aminotrans (AST/SGOT 18 U/L (12-37); Bilirubin, Total 0.4 mg/dL (0.1-1.0); Blood Urea Nitrogen 17 mg/dL (8-24); Bun/Creatinine Ratio 22.9 (12.0-20.0); CO2, Blood 33 mmol/L (21-32); Calcium, Blood 8.9 mg/dL (8.5-10.1); Chloride, Blood 103 mmol/L (98-108); Creatinine, Blood 0.74 mg/dL (0.60-1.20); Globulin, Blood 3.7 g/dL (2.2-4.0); Glomerular Filtration Rate >60 (60-); Glucose, Blood 89 mg/dL (70-99); Potassium, Blood 4.2 mmol/L (3.5-5.5); Sodium, Blood 139 mmol/L (136-145); Total Protein, Blood 6.5 g/dL (6.4-8.2)
== END 2020-03-13 11:19 | disposition home or self-care (01) ==
LOC: ATC 01:21
PROVIDERS: Naturopath
DX: E29.1 Testicular hypofunction (principal); G12.21 Amyotrophic lateral sclerosis; A44.9 Bartonellosis, unspecified; A69.20 Lyme disease, unspecified; R13.10 Dysphagia, unspecified; R25.3 Fasciculation; Z88.8 Allergy status to other drugs, medicaments and biological substances; Z79.82 Long term (current) use of aspirin; Z79.899 Other long term (current) drug therapy
CPT/HCPCS: 36592; 80053; 85025

== ENCOUNTER 2020-03-27 01:51 | Day surgery (SDC) | payer SELFPAY ==
--- NOTE | 2020-03-27 11:42 | NUR ---
PT BP 153/110 AND HR 111, PT STATES HE HAS TAKEN HIS AM BP MEDS TODAY 03/27/20. PT STATES THAT BP HAS BEEN RUNNING THIS HIGH THE PAST COUPLE DAYS, PT STATES HE HAS HAD MORE PAIN RECENTLY, PT STATES HE HAS A MD APPOINTMENT NEXT WEEK AND WILL TALK TO MD ABOUT BP AND PAIN. PT EDUCATED ON HIGH BP CONCERNS, PT STATES UNDERSTANDING.
[2020-03-27 11:44] LABS: BASOPHILS ABSOLUTE AUTO 0.02 K/mm3 (0.00-0.23); BASOPHILS PERCENT AUTO 0 % (0-2); EOSINOPHILS ABSOLUTE AUTO 0.05 K/mm3 (0.00-0.68); EOSINOPHILS PERCENT AUTO 1 % (0-6); Hematocrit 46.2 % (37.0-53.0); Hemoglobin 14.6 g/dL (13.5-17.5); IMMATURE GRAN ABSOLUTE AUTO 0.05 K/mm3 (0.00-0.10); IMMATURE GRAN PERCENT AUTO 1 % (0-1); LYMPHOCYTES ABSOLUTE AUTO 1.18 K/mm3 (0.84-5.20); LYMPHOCYTES PERCENT AUTO 12 % (21-46); MONOCYTES ABSOLUTE AUTO 0.51 K/mm3 (0.16-1.47); MONOCYTES PERCENT AUTO 5 % (4-13); Mean Corpuscular HGB 32.3 pg (26.0-34.0); Mean Corpuscular HGB Conc 31.6 g/dL (31.5-36.5); Mean Corpuscular Volume 102 fL (80-100); Mean Platelet Volume 10.2 fL (9.1-12.4); NEUTROPHILS ABSOLUTE AUTO 8.04 K/mm3 (1.96-9.15); NEUTROPHILS PERCENT AUTO 82 % (41-73); Platelet Count 339 K/mm3 (150-400); RDW Standard Deviation 52.9 fL (35.1-46.3); Red Blood Cell Count 4.52 M/mm3 (4.30-5.90); White Blood Cell Count 9.85 K/mm3 (4.00-11.30)
[2020-03-27 11:59] LABS: Alanine Aminotransfer (ALT/SGP 25 U/L (12-78); Albumin, Blood 2.7 g/dL (3.4-5.0); Albumin/Globulin Ratio 0.7 (0.8-1.8); Alk Phos 60 U/L (50-136); Anion Gap 1 mmol/L (6-16); Aspartate Aminotrans (AST/SGOT 20 U/L (12-37); Bilirubin, Total 0.3 mg/dL (0.1-1.0); Blood Urea Nitrogen 16 mg/dL (8-24); Bun/Creatinine Ratio 20.8 (12.0-20.0); CO2, Blood 38 mmol/L (21-32); Chloride, Blood 101 mmol/L (98-108); Creatinine, Blood 0.77 mg/dL (0.60-1.20); Globulin, Blood 3.8 g/dL (2.2-4.0); Glomerular Filtration Rate >60 (60-); Glucose, Blood 108 mg/dL (70-99); Potassium, Blood 4.3 mmol/L (3.5-5.5); Sodium, Blood 140 mmol/L (136-145); Total Protein, Blood 6.5 g/dL (6.4-8.2)
== END 2020-03-27 11:22 | disposition home or self-care (01) ==
LOC: ATC 01:51
PROVIDERS: Naturopath
DX: A69.20 Lyme disease, unspecified (principal); A44.9 Bartonellosis, unspecified; R25.3 Fasciculation; G12.21 Amyotrophic lateral sclerosis; Z88.8 Allergy status to other drugs, medicaments and biological substances; Z79.899 Other long term (current) drug therapy; Z79.82 Long term (current) use of aspirin
CPT/HCPCS: 36592; 80053; 85025

== ENCOUNTER 2020-04-03 00:18 | Day surgery (SDC) | payer SELFPAY ==
[2020-04-03] MEDS ORDERED: CEFTRIAXON1 GM/50 M1 (11:44)
[2020-04-03 12:14] LABS: BASOPHILS ABSOLUTE AUTO 0.03 K/mm3 (0.00-0.23); BASOPHILS PERCENT AUTO 0 % (0-2); EOSINOPHILS ABSOLUTE AUTO 0.07 K/mm3 (0.00-0.68); EOSINOPHILS PERCENT AUTO 1 % (0-6); Hematocrit 45.9 % (37.0-53.0); Hemoglobin 14.4 g/dL (13.5-17.5); IMMATURE GRAN ABSOLUTE AUTO 0.03 K/mm3 (0.00-0.10); IMMATURE GRAN PERCENT AUTO 0 % (0-1); LYMPHOCYTES ABSOLUTE AUTO 1.61 K/mm3 (0.84-5.20); LYMPHOCYTES PERCENT AUTO 16 % (21-46); MONOCYTES ABSOLUTE AUTO 0.69 K/mm3 (0.16-1.47); MONOCYTES PERCENT AUTO 7 % (4-13); Mean Corpuscular HGB 31.8 pg (26.0-34.0); Mean Corpuscular HGB Conc 31.4 g/dL (31.5-36.5); Mean Corpuscular Volume 101 fL (80-100); Mean Platelet Volume 10.5 fL (9.1-12.4); NEUTROPHILS ABSOLUTE AUTO 7.98 K/mm3 (1.96-9.15); NEUTROPHILS PERCENT AUTO 77 % (41-73); Platelet Count 329 K/mm3 (150-400); RDW Coefficient Variation 13.6 % (11.7-14.2); RDW Standard Deviation 51.4 fL (35.1-46.3); Red Blood Cell Count 4.53 M/mm3 (4.30-5.90); White Blood Cell Count 10.41 K/mm3 (4.00-11.30)
[2020-04-03 12:32] LABS: Alanine Aminotransfer (ALT/SGP 26 U/L (12-78); Albumin, Blood 2.8 g/dL (3.4-5.0); Albumin/Globulin Ratio 0.8 (0.8-1.8); Alk Phos 62 U/L (50-136); Anion Gap 4 mmol/L (6-16); Aspartate Aminotrans (AST/SGOT 18 U/L (12-37); Bilirubin, Total 0.5 mg/dL (0.1-1.0); Blood Urea Nitrogen 13 mg/dL (8-24); Bun/Creatinine Ratio 16.2 (12.0-20.0); CO2, Blood 34 mmol/L (21-32); Calcium, Blood 9.3 mg/dL (8.5-10.1); Chloride, Blood 103 mmol/L (98-108); Globulin, Blood 3.7 g/dL (2.2-4.0); Glomerular Filtration Rate >60 (60-); Glucose, Blood 80 mg/dL (70-99); Potassium, Blood 3.9 mmol/L (3.5-5.5); Sodium, Blood 141 mmol/L (136-145); Total Protein, Blood 6.5 g/dL (6.4-8.2)
== END 2020-04-03 11:23 | disposition home or self-care (01) ==
LOC: ATC 00:18
PROVIDERS: Internal Medicine
DX: A44.9 Bartonellosis, unspecified (principal); A69.20 Lyme disease, unspecified; G12.21 Amyotrophic lateral sclerosis; M62.81 Muscle weakness (generalized); R13.10 Dysphagia, unspecified; Z88.8 Allergy status to other drugs, medicaments and biological substances; Z79.899 Other long term (current) drug therapy; Z79.82 Long term (current) use of aspirin
CPT/HCPCS: 36592; 80053; 85025

== ENCOUNTER 2020-05-08 00:32 | Day surgery (SDC) | payer SELFPAY ==
[~2020-05-08 00:32] MED LIST changes: +CEFTRIAXON1 GM/50 M1
[2020-05-08 12:20] LABS: BASOPHILS ABSOLUTE AUTO 0.04 K/mm3 (0.00-0.23); BASOPHILS PERCENT AUTO 0 % (0-2); EOSINOPHILS ABSOLUTE AUTO 0.04 K/mm3 (0.00-0.68); EOSINOPHILS PERCENT AUTO 0 % (0-6); Hematocrit 47.5 % (37.0-53.0); IMMATURE GRAN ABSOLUTE AUTO 0.05 K/mm3 (0.00-0.10); IMMATURE GRAN PERCENT AUTO 0 % (0-1); LYMPHOCYTES ABSOLUTE AUTO 1.55 K/mm3 (0.84-5.20); LYMPHOCYTES PERCENT AUTO 13 % (21-46); MONOCYTES ABSOLUTE AUTO 0.75 K/mm3 (0.16-1.47); MONOCYTES PERCENT AUTO 7 % (4-13); Mean Corpuscular HGB 31.4 pg (26.0-34.0); Mean Corpuscular HGB Conc 31.6 g/dL (31.5-36.5); Mean Corpuscular Volume 100 fL (80-100); Mean Platelet Volume 10.7 fL (9.1-12.4); NEUTROPHILS ABSOLUTE AUTO 9.18 K/mm3 (1.96-9.15); NEUTROPHILS PERCENT AUTO 79 % (41-73); Platelet Count 329 K/mm3 (150-400); RDW Coefficient Variation 13.9 % (11.7-14.2); Red Blood Cell Count 4.77 M/mm3 (4.30-5.90); White Blood Cell Count 11.61 K/mm3 (4.00-11.30)
[2020-05-08 12:42] LABS: Alanine Aminotransfer (ALT/SGP 31 U/L (12-78); Albumin/Globulin Ratio 0.9 (0.8-1.8); Alk Phos 53 U/L (50-136); Anion Gap 3 mmol/L (6-16); Aspartate Aminotrans (AST/SGOT 21 U/L (12-37); Bilirubin, Total 0.4 mg/dL (0.1-1.0); Blood Urea Nitrogen 17 mg/dL (8-24); Bun/Creatinine Ratio 16.3 (12.0-20.0); CO2, Blood 36 mmol/L (21-32); Calcium, Blood 9.2 mg/dL (8.5-10.1); Chloride, Blood 101 mmol/L (98-108); Creatinine, Blood 1.04 mg/dL (0.60-1.20); Globulin, Blood 3.5 g/dL (2.2-4.0); Glomerular Filtration Rate >60 (60-); Glucose, Blood 84 mg/dL (70-99); Potassium, Blood 4.3 mmol/L (3.5-5.5); Sodium, Blood 140 mmol/L (136-145); Total Protein, Blood 6.5 g/dL (6.4-8.2)
== END 2020-05-08 11:33 | disposition home or self-care (01) ==
LOC: ATC 00:32
PROVIDERS: Naturopath
DX: A44.9 Bartonellosis, unspecified (principal); A69.20 Lyme disease, unspecified; G12.21 Amyotrophic lateral sclerosis; M62.81 Muscle weakness (generalized); R13.10 Dysphagia, unspecified; Z88.8 Allergy status to other drugs, medicaments and biological substances; Z79.82 Long term (current) use of aspirin; Z79.899 Other long term (current) drug therapy
CPT/HCPCS: 36592; 80053; 85025

== ENCOUNTER 2020-05-29 00:03 | Day surgery (SDC) | payer SELFPAY ==
[~2020-05-29 00:03] MED LIST changes: -ASPI81CH PO; +Aspirin EC81 MG PT; +Prinivil10 MG PT
[2020-05-29 11:29] LABS: BASOPHILS ABSOLUTE AUTO 0.02 K/mm3 (0.00-0.23); BASOPHILS PERCENT AUTO 0 % (0-2); EOSINOPHILS ABSOLUTE AUTO 0.02 K/mm3 (0.00-0.68); EOSINOPHILS PERCENT AUTO 0 % (0-6); Hematocrit 48.4 % (37.0-53.0); Hemoglobin 15.4 g/dL (13.5-17.5); IMMATURE GRAN ABSOLUTE AUTO 0.04 K/mm3 (0.00-0.10); IMMATURE GRAN PERCENT AUTO 0 % (0-1); LYMPHOCYTES ABSOLUTE AUTO 0.98 K/mm3 (0.84-5.20); LYMPHOCYTES PERCENT AUTO 8 % (21-46); MONOCYTES ABSOLUTE AUTO 0.74 K/mm3 (0.16-1.47); MONOCYTES PERCENT AUTO 6 % (4-13); Mean Corpuscular HGB 31.7 pg (26.0-34.0); Mean Corpuscular HGB Conc 31.8 g/dL (31.5-36.5); Mean Corpuscular Volume 100 fL (80-100); Mean Platelet Volume 9.8 fL (9.1-12.4); NEUTROPHILS PERCENT AUTO 86 % (41-73); Platelet Count 292 K/mm3 (150-400); RDW Coefficient Variation 14.3 % (11.7-14.2); RDW Standard Deviation 52.8 fL (35.1-46.3); Red Blood Cell Count 4.86 M/mm3 (4.30-5.90)
[2020-05-29 11:52] LABS: Alanine Aminotransfer (ALT/SGP 42 U/L (12-78); Albumin/Globulin Ratio 0.9 (0.8-1.8); Alk Phos 60 U/L (50-136); Anion Gap 0 mmol/L (6-16); Aspartate Aminotrans (AST/SGOT 26 U/L (12-37); Bilirubin, Total 0.7 mg/dL (0.1-1.0); Blood Urea Nitrogen 15 mg/dL (8-24); Bun/Creatinine Ratio 21.1 (12.0-20.0); CO2, Blood 37 mmol/L (21-32); Calcium, Blood 9.2 mg/dL (8.5-10.1); Chloride, Blood 101 mmol/L (98-108); Creatinine, Blood 0.71 mg/dL (0.60-1.20); Globulin, Blood 3.4 g/dL (2.2-4.0); Glomerular Filtration Rate >60 (60-); Glucose, Blood 83 mg/dL (70-99); Potassium, Blood 4.4 mmol/L (3.5-5.5); Sodium, Blood 138 mmol/L (136-145); Total Protein, Blood 6.4 g/dL (6.4-8.2)
== END 2020-05-29 11:28 | disposition home or self-care (01) ==
LOC: ATC 00:03
PROVIDERS: Naturopath
DX: G12.21 Amyotrophic lateral sclerosis (principal); A44.9 Bartonellosis, unspecified; A69.20 Lyme disease, unspecified; R25.3 Fasciculation; Z79.899 Other long term (current) drug therapy; Z88.8 Allergy status to other drugs, medicaments and biological substances
CPT/HCPCS: 36592; 80053; 85025

== ENCOUNTER 2020-05-31 19:55 | Inpatient (IN) | payer SELFPAY ==
[~2020-05-31] VITALS: Ht 175.3 cm; Wt 89.0 kg
[2020-05-31 20:35] LABS: PCO2 Arterial 88.9 mmHg (35-45); PO2 Arterial 127 mmHg (80-100); pH Blood Arterial 7.28 (7.35-7.45)
[2020-05-31] MEDS ORDERED: DEXA2 PT (20:41)
[2020-05-31] MEDS ORDERED: Depo-Testos200 MG/ML IM (20:42)
[2020-05-31] MEDS ORDERED: MEXITIL PT (20:43)
[2020-05-31] MEDS ORDERED: RILUZOLE50 MG PT (20:44)
[2020-05-31] MEDS ORDERED: Robaxin750 MG PT (20:45)
[2020-05-31 20:47] LABS: BASOPHILS ABSOLUTE AUTO 0.03 K/mm3 (0.00-0.23); BASOPHILS PERCENT AUTO 0 % (0-2); EOSINOPHILS ABSOLUTE AUTO 0.04 K/mm3 (0.00-0.68); EOSINOPHILS PERCENT AUTO 0 % (0-6); Hematocrit 47.7 % (37.0-53.0); Hemoglobin 14.5 g/dL (13.5-17.5); IMMATURE GRAN ABSOLUTE AUTO 0.07 K/mm3 (0.00-0.10); IMMATURE GRAN PERCENT AUTO 1 % (0-1); LYMPHOCYTES ABSOLUTE AUTO 1.52 K/mm3 (0.84-5.20); LYMPHOCYTES PERCENT AUTO 10 % (21-46); MONOCYTES ABSOLUTE AUTO 1.28 K/mm3 (0.16-1.47); MONOCYTES PERCENT AUTO 9 % (4-13); Mean Corpuscular HGB 31.6 pg (26.0-34.0); Mean Corpuscular HGB Conc 30.4 g/dL (31.5-36.5); Mean Corpuscular Volume 104 fL (80-100); Mean Platelet Volume 10.1 fL (9.1-12.4); NEUTROPHILS PERCENT AUTO 80 % (41-73); Platelet Count 270 K/mm3 (150-400); RDW Coefficient Variation 14.4 % (11.7-14.2); Red Blood Cell Count 4.59 M/mm3 (4.30-5.90); White Blood Cell Count 15.04 K/mm3 (4.00-11.30)
[2020-05-31] MEDS ORDERED: MAGNESIUM1 GM/100 M IM (20:54)
[2020-05-31 21:09] LABS: Alanine Aminotransfer (ALT/SGP 42 U/L (12-78); Albumin, Blood 2.7 g/dL (3.4-5.0); Albumin/Globulin Ratio 0.8 (0.8-1.8); Alk Phos 55 U/L (50-136); Anion Gap -1 mmol/L (6-16); Aspartate Aminotrans (AST/SGOT 26 U/L (12-37); Bilirubin, Total 0.4 mg/dL (0.1-1.0); Blood Urea Nitrogen 27 mg/dL (8-24); Bun/Creatinine Ratio 35.8 (12.0-20.0); CO2, Blood 40 mmol/L (21-32); Calcium, Blood 8.8 mg/dL (8.5-10.1); Chloride, Blood 98 mmol/L (98-108); Creatinine, Blood 0.75 mg/dL (0.60-1.20); Globulin, Blood 3.6 g/dL (2.2-4.0); Glomerular Filtration Rate >60 (60-); Glucose, Blood 109 mg/dL (70-99); Potassium, Blood 5.1 mmol/L (3.5-5.5); Sodium, Blood 137 mmol/L (136-145); Total Protein, Blood 6.3 g/dL (6.4-8.2)
[2020-05-31 21:50] LABS: Base Excess Venous 14.5 mmol/L; Bicarbonate Venous 33.8 mmol/L (24.0-30.0); PCO2 Venous 90 mmHg (38-42); PO2 Venous 62.4 mmHg (38-42); pH Blood Venous 7.27 (7.34-7.37)
[2020-06-01 05:52] LABS: Base Excess Venous 14.3 mmol/L; Bicarbonate Venous 34.1 mmol/L (24.0-30.0); PCO2 Venous 79.9 mmHg (38-42); PO2 Venous 74.2 mmHg (38-42); pH Blood Venous 7.31 (7.34-7.37)
[2020-06-01 05:57] LABS: BASOPHILS ABSOLUTE AUTO 0.01 K/mm3 (0.00-0.23); BASOPHILS PERCENT AUTO 0 % (0-2); EOSINOPHILS PERCENT AUTO 0 % (0-6); Hematocrit 48.7 % (37.0-53.0); Hemoglobin 14.8 g/dL (13.5-17.5); IMMATURE GRAN ABSOLUTE AUTO 0.08 K/mm3 (0.00-0.10); IMMATURE GRAN PERCENT AUTO 1 % (0-1); LYMPHOCYTES ABSOLUTE AUTO 0.52 K/mm3 (0.84-5.20); LYMPHOCYTES PERCENT AUTO 3 % (21-46); MONOCYTES ABSOLUTE AUTO 0.12 K/mm3 (0.16-1.47); MONOCYTES PERCENT AUTO 1 % (4-13); Mean Corpuscular HGB 31.5 pg (26.0-34.0); Mean Corpuscular HGB Conc 30.4 g/dL (31.5-36.5); Mean Corpuscular Volume 104 fL (80-100); Mean Platelet Volume 9.9 fL (9.1-12.4); NEUTROPHILS ABSOLUTE AUTO 14.41 K/mm3 (1.96-9.15); NEUTROPHILS PERCENT AUTO 95 % (41-73); Platelet Count 276 K/mm3 (150-400); RDW Coefficient Variation 14.2 % (11.7-14.2); RDW Standard Deviation 55.1 fL (35.1-46.3); White Blood Cell Count 15.14 K/mm3 (4.00-11.30)
[2020-06-01 06:18] LABS: Anion Gap -3 mmol/L (6-16); Blood Urea Nitrogen 22 mg/dL (8-24); CO2, Blood 41 mmol/L (21-32); Calcium, Blood 8.9 mg/dL (8.5-10.1); Chloride, Blood 98 mmol/L (98-108); Creatinine, Blood 0.79 mg/dL (0.60-1.20); Glomerular Filtration Rate >60 (60-); Glucose, Blood 131 mg/dL (70-99); Potassium, Blood 5.8 mmol/L (3.5-5.5); Sodium, Blood 136 mmol/L (136-145); Troponin I 0.057 ng/mL (0.000-0.040)
--- NOTE | 2020-06-01 09:30 | NUR ---
ASSUMED CARE: PT ARRIVES FROM ED WITH BIPAP IN PLACE AT 14/8 AND 30% FIO2, SATTING LOW TO MID 90S ON THIS. PT IS ABLE TO TALK THROUGH BIPAP AND MAINTAIN SATURATIONS. NSR ON TELE. AT BEDSIDE
--- NOTE | 2020-06-01 10:33 | NUR ---
DR HEALY AND DR SALOMON AWARE THAT PT IS NOW IN ICU VS ED. PT REMAINS ON BIPAP 08/05 WITH 30% FIO2. DR SALOMON APPROVED USE OF PEG TUBE FOR MEDS. AWARE OF MEDS THAT NEED TO BE BROUGHT IN THAT HOSPITAL DOES NOT HAVE. DIETITIAN CAME TO SEE PT AND WILL PLACE ORDERS. PT RESTING QUIETLY. AT BEDSIDE
--- NOTE | 2020-06-01 12:32 | NUR ---
DR SALOMON CAME TO SEE PT AND DISCUSSED STATUS WITH THEM. DR WISHES FOR PT TO REMAIN ON BIPAP UNTIL PULMONOLOGY HAS A CHANCE TO SEE PT. SPEECH THERAPY AWARE OF THIS. DR AWARE THAT STATES PT HAS HOME MEDS THAT HAVE NOT BEEN ORDERED. DR SAOLMON TO REVIEW MED REC. NO FURTHER NEEDS AT THIS TIME.
[2020-06-01 13:26] LABS: PCO2 Arterial 69.8 mmHg (35-45); PO2 Arterial 69.3 mmHg (80-100); pH Blood Arterial 7.39 (7.35-7.45)
--- NOTE | 2020-06-01 13:42 | NUR ---
echocardiogram completed
--- NOTE | 2020-06-01 15:08 | NUR ---
PT TAKEN TO CT VIA WHEEL CHAIR BY HOSPITAL STAFF. PT ON 5L O2 VIA NC AND SATTING 95% ON THIS. NO ACUTE NEEDS OR CONCERNS AT THIS TIME.
--- NOTE | 2020-06-01 16:13 | NUR ---
CT TOOK PT FOR TEST AND PICC LINE DEVELOPED HOLE IN TUBING. PICC RN AWARE AND STATES IT WILL NEED TO BE REPLACED. CALL TO DR SALOMON. ORDER FOR NEW LINE. PICC RN AWARE
--- NOTE | 2020-06-01 16:56 | NUR ---
NAPOLEON, PICC RN IN ROOM AT THIS TIME REMOVING PICC LINE AND PLACING PERIPHERAL. AT BEDSIDE
--- NOTE | 2020-06-01 17:18 | NUR ---
PICC/GROSHONG REMOVAL: PT ADMITTED WITH SINGLE PORT GROSHONG PICC TO [place]EE PLACED AT [facility]. DURING CT SCAN THIS ADMIT WITH CONTRAST, OUTER CATHETER RUPTURED THIS LINE DID NOT HAVE A POWER PORT. RUPUTURED LINE WAS ON OUTSIDE OF BODY, NOT INDWELLING PORTION. PICC LINE DC'D; 50CM TOTAL REMOVED. PICC DC'D INTACT. PICTURE OF CARD TAKEN AND IS IN CHART FOR RECORDS. NEW PICC LINE TO BE PLACED. MD AND FAMILY NOTIFIED.
--- NOTE | 2020-06-01 17:42 | NUR ---
PT TAKEN TO CT SCAN VIA BED ON 10L NC BY IMAGING STAFF. NO FURTHER NEEDS AT THIS TIME.
--- NOTE | 2020-06-01 18:29 | NUR ---
PT RETURNED FROM CT. SOB AND TACHYCARDIC WHEN HE RETURNED. NC WAS ON CHIN RATHER THAN IN NOSE. HR CURRENTLY IN 120S. PT TOLD CT HE WAS UNABLE TO LAY FLAT DUE TO INCREASED PHLEGM. WHEN RETURNED FROM CT SUCTION NEEDED FOR PHLEGM AGAIN. PT UNABLE TO COUGH IT CLEAR BUT SUCTION NEEDED AND HELPED. NURSE ASSISTED TO BEDSIDE FOR URINAL WITH DYPNEA ON EXERTION. RESTING BACK IN BED AT THIS TIME.
--- NOTE | 2020-06-01 18:54 | NUR ---
CALL TO DR HEALY TO RELAY CT RESULT. AWARE THAT PT HAD INCREASED WORK OF BREATHING AND TACHYCARDIA WELL TROUBLE CLEARING SECRETIONS WITH BREAKS. ORDER FOR PRECEDEX IF NEEDED. PROGRAM COORDINATOR FOR [employer] AWARE THAT IT'S ORDERED FOR PRN USE. AWARE OF NORMAL POTASSIUM. LEFT FOR DAY. NO FURTHER NEEDS A THIS TIME.
[2020-06-02 03:55] LABS: BASOPHILS ABSOLUTE AUTO 0.01 K/mm3 (0.00-0.23); BASOPHILS PERCENT AUTO 0 % (0-2); EOSINOPHILS PERCENT AUTO 0 % (0-6); Hematocrit 44.9 % (37.0-53.0); Hemoglobin 14.3 g/dL (13.5-17.5); IMMATURE GRAN ABSOLUTE AUTO 0.06 K/mm3 (0.00-0.10); IMMATURE GRAN PERCENT AUTO 0 % (0-1); LYMPHOCYTES ABSOLUTE AUTO 0.78 K/mm3 (0.84-5.20); LYMPHOCYTES PERCENT AUTO 5 % (21-46); MONOCYTES ABSOLUTE AUTO 0.41 K/mm3 (0.16-1.47); MONOCYTES PERCENT AUTO 3 % (4-13); Mean Corpuscular HGB Conc 31.8 g/dL (31.5-36.5); Mean Corpuscular Volume 100 fL (80-100); Mean Platelet Volume 9.7 fL (9.1-12.4); NEUTROPHILS ABSOLUTE AUTO 15.32 K/mm3 (1.96-9.15); NEUTROPHILS PERCENT AUTO 92 % (41-73); Platelet Count 272 K/mm3 (150-400); RDW Coefficient Variation 13.6 % (11.7-14.2); RDW Standard Deviation 50.5 fL (35.1-46.3); Red Blood Cell Count 4.47 M/mm3 (4.30-5.90); White Blood Cell Count 16.58 K/mm3 (4.00-11.30)
[2020-06-02 04:10] LABS: Anion Gap -2 mmol/L (6-16); Blood Urea Nitrogen 24 mg/dL (8-24); Bun/Creatinine Ratio 33.8 (12.0-20.0); CO2, Blood 42 mmol/L (21-32); Calcium, Blood 8.7 mg/dL (8.5-10.1); Chloride, Blood 98 mmol/L (98-108); Creatinine, Blood 0.71 mg/dL (0.60-1.20); Glomerular Filtration Rate >60 (60-); Glucose, Blood 127 mg/dL (70-99); Phosphorus, Blood 2.4 mg/dL (2.5-4.9); Sodium, Blood 138 mmol/L (136-145)
[2020-06-02 05:55] LABS: PCO2 Arterial 70.9 mmHg (35-45); PO2 Arterial 109 mmHg (80-100)
--- NOTE | 2020-06-02 07:39 | NUR ---
PATIENT WAS LETHARGIC LAST NIGHT, BUT WAS ABLE TO AWAKEN AND ANSWER QUESTIONS AND FOLLOW COMMANDS APPROPRIATELY. HE DID AMBULATE TO THE TOILET ONCE THIS SHIFT. HE WAS STRONG ON HIS FEET BUT A LITTLE UNBALANCED. HE IS ABLE TO TURN HIMSELF IN BED. HE DOES HAVE SOME MUSCLE SPASTICITY WITH MOVEMENT. DENYING PAIN. BEDSIDE TELESALES ADVISOR SHOWS NSR, TACHYCARDIC AT TIMES. LUNGS ARE CLEAR AND DIM. HE WORE THE BIPAP FOR THE ENTIRE SHIFT LAST NIGHT, BUT AM ABG DID SHOW ELEVATED CO2 AT 70. FIO2 AT 35%. PRESSURES 14/6. NO SHORTNESS OF BREATH THIS SHIFT. PATIENT IS NPO UNTIL SPEECH THERAPY CAN SEE THE PATIENT. HE ALSO HAS BOLUS FEEDS ORDERED. PEG TUBE IN PLACE FROM TEXTILE COLORIST DYER. LAST BM WAS 05/30. BOWEL TONES HYPOACTIVE. SKIN INTACT. PIV X [address] SALINE LOCKED.
--- NOTE | 2020-06-02 08:40 | NUR ---
INITIAL ASSESSMENT PATIENT ALERT AND ORIENTED X 4, AFEBRILE. PATIENT DENIES PAIN. PATIENT HAS ALS. SLIGHT AMOUNT OF SPASICITY NOTED IN UPPER EXTREMITIES WITH MOVEMENT. PATIENT WEAK. 1 PERSON ASSIST TO TOILET. PATIENT USES A CANE AT HOME. LUNGS DIMINISHED IN R SIDE AND BASES. PATIENT SATTING 90% AND GREATER ON BIPAP 14/6, 35% FIO2. PATIENT SOB WITH EXERTION. PATIENT IN SR, HR IN THE 80S. BP 141/ 81. ABDOMEN MILDLY DISTENDED WITH HYPOACTIVE BS NOTED. PATIENT WOULD LIKE BOWEL CARE HE STATES LAST TIME HE LEFT HOSPITAL THAT HE ENDED UP IMPACTED. PATIENT NPO. PATIENT RECEIVING BOLUS FEEDS BY PEG TUBE. RESIDUAL OF ZERO THIS AM. PATIENT STATES THAT HE HAS BEEN SWALLING REGULAR FOODS FINE BUT USING PEG TUBE FOR MEDS. WNL. PATIENT BEING ASSISTED TO TOILET. SKIN APPEARS WNL. IV FLUSHED AND SALINE LOCKED. PATIENT ASKED TO HAVE BRING IN HOME ALS MED PHARMACY HERE DOES NOT CARRY IT. BED LOW, CALL LIGHT IN REACH. WILL CONTINUE TO MONITOR PATIENT FREQUENTLY THROUGHOUT SHIFT.
--- NOTE | 2020-06-02 11:07 | NUR ---
DR. STROUDH IN TO SPEAK WITH PATIENT AND . DOCTOR INFORMED THAT PATIENT EAGER TO GO HOME. INFORMED OF INCREASING WBCS. INFORMED OF AM ABG RESULTS. NO ORDERS OBTAINED AT THIS TIME.
--- NOTE | 2020-06-02 13:00 | NUR ---
DR. SALOMON IN TO SEE PATIENT. INFORMED OF AM PHOSPHORUS OF 2.4. DOCTOR ALSO INFORMED THAT PATIENT HAS NOT HAD BM SINCE THE 5TH AND THAT HE WOULD LIKE TO BE STARTED ON SOMETHING TO MAKE HIM GO. STATED HE WOULD PUT ORDERS IN FOR BOWEL CARE.
--- NOTE | 2020-06-02 13:35 | NUR ---
PATIENT RESTING QUIETLY IN BED WITH AT BEDSIDE. PATIENT AFEBRILE. PATIENT SATTING 90% OR GREATER ON BIPAP /6, 25% FIO2 OR SHORT BREAKS ON 6 L NC. HR IN THE 90S. BP STABLE. BLOOD SUGAR OF 134. ROCEPHIN IV STARTED. NO OTHER ACUTE CHANGES TO NOTE ON AT THIS TIME. WILL CONTINUE TO MONITOR.
--- NOTE | 2020-06-02 18:23 | NUR ---
SHIFT SUMMARY PATIENT REMAINED ALERT AND ORIENTED, AFEBRILE. PATIENT HAD NO COMPLAINTS OF PAIN. PATIENT REMAINED 1 PA AND REPOSITIONING SELF IN BED. SETTINGS OF BIPAP ABLE TO BE DECREASED FROM 14/6, 35% FIO2 AT BEGINNING OF SHIFT TO 10/5, 25% FIO2 BY END OF SHIFT. PATIENT DID TOLERATE GOOD BREAK FROM BIPAP, AROUND AN HOUR, ON 6 L NC. PATIENT REMAINED SOB WITH EXERTION. PATIENT REMAINED IN SR TO ST, HR 80S TO LOW 100S. SBP 130S TO 150S. PATIENT DID HAVE SMALL FORMED BM THIS SHIFT. SENOKOT BM BID ORDERED TO START TONIGHT PATIENT COMPLAINED THAT HE HAD PROBLEMS WITH IMPACTION LAST TIME AFTER LEAVING HOSPITAL. PATIENT REMAINED NPO. PATIENT RECEIVED BOLUS FEEDS INTO PEG TUBE. RESIDUALS OF ZERO ALL SHIFT. WNL. NO CHANGE IN SKIN. PATIENT REPOSITIONING SELF IN BED. PATIENT STARTED ON ROCEPHIN THIS SHIFT. NEW POWER PICC INSERTED. PATIENT RECEIVED FULL BED BATH. PATIENT HAS NO COMPLAINTS AT THIS TIME. BED LOW, CALL LIGHT IN REACH. AT BEDSIDE. WILL BE GIVING REPORT TO ONCOMING LEAF CONDITIONER HELPER SHORTLY.
--- NOTE | 2020-06-02 20:00 | NUR ---
ASSUMED CARE OF PT AT 1915. REPORT RECEIVED. PT PRESENTS IN BED. ALERT AND ORIENTED. PLEASANT AND COOPERATIVE WITH CARE AND ASSESSMENT. PT DENIES COMPLAINTS AT THIS TIME. PROVIDED GEL PAD FOR BRIDGE OF NOSE FOR COMFORT WITH MASK. PT STATES THIS HELPFUL. IN ROOM. WILL REVIEW CHART AND PLAN OF CARE FOR THIS PT.
--- NOTE | 2020-06-02 23:29 | NUR ---
PT RESTING COMFORTABLY IN NO APPARENT DISTRESS. WEARING BIPAP. FIO2 AT 30 PERCENT. MAINTAINING OXYGEN SATURATIONS > 90 PERCENT. BOLUS FEEDING DONE WITH WATER FLUSH. PEGTUBE FUNCTIONING PROPERLY. PT VOICES UNDERSTANDING OF PEG TUBE AND FEEDINGS. WILL CONTINUE TO MONITOR PT.
[2020-06-03 03:47] LABS: Base Excess Venous 20.6 mmol/L; Bicarbonate Venous 40.5 mmol/L (24.0-30.0); PCO2 Venous 70.2 mmHg (38-42); pH Blood Venous 7.42 (7.34-7.37)
--- NOTE | 2020-06-03 06:48 | NUR ---
PT HAS BEEN ABLE TO TOLERATE BIPAP FOR THIS NIGHT. HAS MAINTAINED > 90 PERCENT SATURATIONS ON 10/5 BIPAP WITH 30 PERCENT FIO2. NO COMPLAINTS VOICED BY PT. IS ABLE TO STAND AT SIDE OF BED TO VOID. CONTINUES TO USE BIPAP EVEN WHEN HE IS STANDING. WILL CONTINUE TO MONITOR PT, AND WILL REPORT OFF TO ONCOMING RN.
--- NOTE | 2020-06-03 10:18 | NUR ---
AM NOTE... ASSUMED CARE OF PT APROX 0700, PT IS A&Ox4 AND WAS ADMITTED FOR RESPIRATORY FAILURE, PT IS CURRENTLY ON BIPAP WITH SETTINGS OF 10/5 AND FIO2 OF 30%. PT IS ALSO ON BIPAP AT HOME. L/S CLEAR T/O DIM IN THE MID TO LOWER LOBES, PT TAKES SHALLOW QUICK BREATHS. BT PRESENT AND HYPOACTIVE, ABD IS SOFT AND NONTENDER TO PALP. NO EDEMA NOTED ON ASSESSMENT. PT IS ST/NSR IN THE 90'S-100'S BP STABLE. PT IS ABLE TO STAND AND WALK TO THE TOILET WITH MIN ASSIST. PEG TUBE PRESENT FOR MEDS AND FEEDINGS AT THIS TIME. CALL LIGHT IN REACH WILL CONTINUE TO MOINTOR.
[2020-06-03 13:41] LABS: PO2 Arterial 67.1 mmHg (80-100); pH Blood Arterial 7.45 (7.35-7.45)
[2020-06-03] MEDS ORDERED: CEFP200 PT (15:48)
[2020-06-03] MEDS ORDERED: SENN187 PT (15:50)
--- NOTE | 2020-06-03 18:09 | NUR ---
PT D/C HOME... PT D/C HOME WITH ALL OF HIS BELONGINGS. NEW MEDICATIONS CALLED INTO PHARMACY OF PT'S CHOICE. NEW MEDICATION EDUCATION PROIVDED TO PT AND SPOUSE. PT HAS 1 LUMEN PICC LINE FOR OUTPT INFUSIONS. PT DENIED ANY CHEST PAIN/PRESSURE N/V OR INCREASED SOB. PT WAS PROVIDED HOME O2 BEFORE DISCHARGE, PT AND BOTH EDUCATED ON HOW TO USE/WORK THE TANKS. PT WAS ESCORTED OUT TO HIS CAR VIA W/C.
[2020-06-04] MEDS ORDERED: DEXA2 PO (21:12)
[2020-06-04] MEDS ORDERED: Robaxin750 MG PT (22:18)
[2020-06-04] MEDS ORDERED: ASCO500 PT (22:19)
[2020-06-04] MEDS ORDERED: DEXA2 PT (22:26)
--- NOTE | 2020-06-05 03:46 | NUR ---
I was in chart to find information on PICC line pt was discharged with since pt has been readmitted.
== END 2020-06-03 18:08 | disposition home or self-care (01) | DRG 871 ==
LOC: ER 19:55 → ICUW 21:39 → ERHOLD 21:39 → ICUW 06-01 08:58
PROVIDERS: Emergency Medicine; Internal Medicine; Internal Medicine Pulmonary Disease; Physician Assistant; ADMIT Family Medicine
PROC: 5A09457 Assistance with Respiratory Ventilation, 24-96 Consecutive Hours, Continuous Positive Airway Pressure (ICD-10-PCS; principal; 2020-06-03)
DX: A41.9 Sepsis, unspecified organism (principal); J69.0 Pneumonitis due to inhalation of food and vomit; J96.22 Acute and chronic respiratory failure with hypercapnia; J96.21 Acute and chronic respiratory failure with hypoxia; G12.21 Amyotrophic lateral sclerosis; A69.20 Lyme disease, unspecified; R65.20 Severe sepsis without septic shock; K21.9 Gastro-esophageal reflux disease without esophagitis; I10 Essential (primary) hypertension; Z20.828 Contact with and (suspected) exposure to other viral communicable diseases
CPT/HCPCS: 36415; 36569; 36600; 71045; 71260; 80048; 80053; 82803; 82947; 83605; 83880; 84100; 84132; 84145; 84484; 85025; 87040; 92610; 93005; 93010; 93306; 94660; 94761; 96374; 99285-25; A9270-GY; C1751; C1769; J0456; J0696; J1650; J2930; J7050; Q9967; U0002

== ENCOUNTER 2020-06-04 15:28 | Inpatient (IN) | payer SELFPAY ==
[~2020-06-04] VITALS: Ht 172.7 cm; Wt 88.8 kg
[~2020-06-04 15:28] MED LIST changes: +CEFP200 PT; +DEXA2 PT; +Depo-Testos200 MG/ML IM; +MAGNESIUM1 GM/100 M IM; +MEXITIL PT; +RILUZOLE50 MG PT; +Robaxin750 MG PT; +SENN187 PT
[2020-06-04 17:49] LABS: BASOPHILS ABSOLUTE AUTO 0.04 K/mm3 (0.00-0.23); BASOPHILS PERCENT AUTO 0 % (0-2); EOSINOPHILS PERCENT AUTO 0 % (0-6); Hematocrit 47.5 % (37.0-53.0); Hemoglobin 15.2 g/dL (13.5-17.5); IMMATURE GRAN ABSOLUTE AUTO 0.12 K/mm3 (0.00-0.10); IMMATURE GRAN PERCENT AUTO 1 % (0-1); LYMPHOCYTES ABSOLUTE AUTO 0.85 K/mm3 (0.84-5.20); LYMPHOCYTES PERCENT AUTO 4 % (21-46); MONOCYTES ABSOLUTE AUTO 0.83 K/mm3 (0.16-1.47); MONOCYTES PERCENT AUTO 3 % (4-13); Mean Corpuscular HGB 31.4 pg (26.0-34.0); Mean Corpuscular Volume 98 fL (80-100); NEUTROPHILS ABSOLUTE AUTO 22.38 K/mm3 (1.96-9.15); NEUTROPHILS PERCENT AUTO 92 % (41-73); Platelet Count 253 K/mm3 (150-400); RDW Coefficient Variation 14.1 % (11.7-14.2); RDW Standard Deviation 51.5 fL (35.1-46.3); Red Blood Cell Count 4.84 M/mm3 (4.30-5.90); White Blood Cell Count 24.22 K/mm3 (4.00-11.30)
[2020-06-04 18:15] LABS: Alanine Aminotransfer (ALT/SGP 50 U/L (12-78); Albumin, Blood 2.7 g/dL (3.4-5.0); Albumin/Globulin Ratio 0.7 (0.8-1.8); Alk Phos 56 U/L (50-136); Anion Gap 1 mmol/L (6-16); Aspartate Aminotrans (AST/SGOT 21 U/L (12-37); Bilirubin, Total 0.8 mg/dL (0.1-1.0); Blood Urea Nitrogen 19 mg/dL (8-24); Bun/Creatinine Ratio 26.5 (12.0-20.0); CO2, Blood 39 mmol/L (21-32); Calcium, Blood 9.2 mg/dL (8.5-10.1); Chloride, Blood 99 mmol/L (98-108); Creatinine, Blood 0.72 mg/dL (0.60-1.20); Globulin, Blood 3.7 g/dL (2.2-4.0); Glomerular Filtration Rate >60 (60-); Glucose, Blood 87 mg/dL (70-99); Potassium, Blood 4.5 mmol/L (3.5-5.5); Sodium, Blood 139 mmol/L (136-145); Total Protein, Blood 6.4 g/dL (6.4-8.2)
[2020-06-04] MEDS ORDERED: DEXA2 PO (21:12)
[2020-06-04] MEDS ORDERED: Robaxin750 MG PT (22:18)
[2020-06-04] MEDS ORDERED: ASCO500 PT (22:19)
[2020-06-04] MEDS ORDERED: DEXA2 PT (22:26)
[2020-06-05 05:19] LABS: Hematocrit 49.8 % (37.0-53.0); Hemoglobin 15.8 g/dL (13.5-17.5); Mean Corpuscular HGB 31.3 pg (26.0-34.0); Mean Corpuscular HGB Conc 31.7 g/dL (31.5-36.5); Mean Corpuscular Volume 99 fL (80-100); Mean Platelet Volume 10.4 fL (9.1-12.4); Platelet Count 247 K/mm3 (150-400); RDW Coefficient Variation 14.2 % (11.7-14.2); RDW Standard Deviation 51.8 fL (35.1-46.3); Red Blood Cell Count 5.04 M/mm3 (4.30-5.90); White Blood Cell Count 22.82 K/mm3 (4.00-11.30)
[2020-06-05 05:56] LABS: Anion Gap 4 mmol/L (6-16); Blood Urea Nitrogen 17 mg/dL (8-24); Bun/Creatinine Ratio 25.3 (12.0-20.0); CO2, Blood 36 mmol/L (21-32); Calcium, Blood 9.6 mg/dL (8.5-10.1); Chloride, Blood 99 mmol/L (98-108); Creatinine, Blood 0.67 mg/dL (0.60-1.20); Glomerular Filtration Rate >60 (60-); Glucose, Blood 91 mg/dL (70-99); Potassium, Blood 4.6 mmol/L (3.5-5.5); Sodium, Blood 139 mmol/L (136-145)
--- NOTE | 2020-06-05 06:41 | NUR ---
SUMMARY PT ARRIVED IN NO DISTRESS. PT IS ABLE TO AMBULATE VIA 1-ASSIST TO RESTROOM. PT ON O2 VIA NC @ 2.5 LPM. PT REQUESTS TO BE ON BIPAP MAJORITY OF TIME. BIPAP HAS O2 BLEED IN @ 2.5 LPM. PT ON 24 HR CONTINOUS BIPAP. PT HAS BEEN TACHY T/O SHIFT IN LOW 100'S. PT HAS ALSO BEEN TX FOR HTN ORDERED W/ APRESOLINE W/ DECREASE. PT HAS BEEN SLEEPING W/ OUT ISSUE. PT CURRENTLY SLEEPING W/ BIPA AND IN NO DISTRESS. CALL LIGHT IN REACH.
[2020-06-06 04:57] LABS: BASOPHILS ABSOLUTE AUTO 0.02 K/mm3 (0.00-0.23); BASOPHILS PERCENT AUTO 0 % (0-2); EOSINOPHILS ABSOLUTE AUTO 0.01 K/mm3 (0.00-0.68); EOSINOPHILS PERCENT AUTO 0 % (0-6); Hematocrit 46.3 % (37.0-53.0); Hemoglobin 14.2 g/dL (13.5-17.5); IMMATURE GRAN ABSOLUTE AUTO 0.09 K/mm3 (0.00-0.10); IMMATURE GRAN PERCENT AUTO 1 % (0-1); LYMPHOCYTES ABSOLUTE AUTO 0.82 K/mm3 (0.84-5.20); LYMPHOCYTES PERCENT AUTO 5 % (21-46); MONOCYTES ABSOLUTE AUTO 1.03 K/mm3 (0.16-1.47); MONOCYTES PERCENT AUTO 6 % (4-13); Mean Corpuscular HGB 31.1 pg (26.0-34.0); Mean Corpuscular HGB Conc 30.7 g/dL (31.5-36.5); Mean Corpuscular Volume 101 fL (80-100); Mean Platelet Volume 10.4 fL (9.1-12.4); NEUTROPHILS ABSOLUTE AUTO 15.94 K/mm3 (1.96-9.15); NEUTROPHILS PERCENT AUTO 89 % (41-73); Platelet Count 241 K/mm3 (150-400); RDW Coefficient Variation 14.1 % (11.7-14.2); RDW Standard Deviation 53.1 fL (35.1-46.3); Red Blood Cell Count 4.57 M/mm3 (4.30-5.90); White Blood Cell Count 17.91 K/mm3 (4.00-11.30)
[2020-06-06 05:13] LABS: Anion Gap 4 mmol/L (6-16); Blood Urea Nitrogen 19 mg/dL (8-24); Bun/Creatinine Ratio 28.4 (12.0-20.0); CO2, Blood 36 mmol/L (21-32); Calcium, Blood 9.2 mg/dL (8.5-10.1); Chloride, Blood 100 mmol/L (98-108); Creatinine, Blood 0.67 mg/dL (0.60-1.20); Glomerular Filtration Rate >60 (60-); Glucose, Blood 84 mg/dL (70-99); Magnesium, Blood 2.1 mg/dL (1.6-2.4); Phosphorus, Blood 3.5 mg/dL (2.5-4.9); Potassium, Blood 4.4 mmol/L (3.5-5.5); Sodium, Blood 140 mmol/L (136-145)
--- NOTE | 2020-06-06 06:04 | NUR ---
SHIFT SUMMARY PT SLEPT VERY HARD THIS EVENING. WAKING AT ONE POINT CONFUSED TO WHERE HE WAS, THINKING HE WAS IN SOMEONE'S GARAGE. PT EASILY REORIENTED. PT WORE BIPAP THROUGHOUT THE NIGHT. SMALL AMOUNT OF BLOOD AT PEG TUBE SITE. NEW GAUZE PLACED AND ABD PAD. TELEMETRY READING SINUS TACH 107. PT DID REPORT SOME CONTINUED ABD PAIN. MEDICATED X 1 WITH 0.5 MG DILAUDID. PT NPO. PLEASANT AND COOPERATIVE. WILL CONTINUE TO MONITOR AND REPORT TO DAY RN.
--- NOTE | 2020-06-06 17:20 | NUR ---
PT IS A/OX3, PLEASANT AND COOPERATIVE, THE PT IS UP WITH MINIMAL ASSIST TO THE BSC, THE PT IS ON BIPAP WITH 4.5L/MIN BLEED IN PER PT REQUEST, THE PT HAS WORE HIS BIPAP FOR MOST OF THE DAY, ON O2 ONLY FOR PHONE CALLS AND UP TO WALK, THE PT WALKED IN THE DAVIS APROX 300 FEET PLUS, USING THE FWW AND 5L/MIN O2 VIA NC, THE PT WAS SOB ON RETURN TO THE ROOM, HOWEVER, RECOVERED EASILY BACK ON THE BIPAP, THE PT WAS MEDICATED FOR PAIN X2 SO FAR TODAY, THE PT REPORTS THAT HIS PAIN HAS IMPROVED TODAY COMPARED TO YESTERDAY, THE PT WAS GIVEN BANATROL THIS AM THROUGH HIS PEG AND TOLERATED IT WELL, HOWEVER, THE BANATROL WAS ORDERED IN ERROR PER DR. ROMAN, THE PT AT THIS TIME IS NPO, IV PPN TO START THIS EVENING, FAMILY AT THE BEDSIDE, CALL LIGHT IN REACH, WILL CONTINUE TO MONITOR AND ASSESS FOR CHANGES
--- NOTE | 2020-06-07 04:39 | NUR ---
SHIFT SUMMARY: VSS. TACHYCARDIC, 110. 02 95%- WEARING BIPAP W/ 4L 02 BLEED IN CONTINUOUSLY. LS DIM THROUGHOUT. EXERTIONAL DYSPNEA NOTED WHEN UP TO USE BSC. MED X 1 FOR RLQ ABD PAIN 01/02. DOWN TO 2/10 W/ANALGESIC. PT STATES TOLERABLE. BT ACTIVE X 4. MILDLY DISTENDED. FORMED BM ON 06/06. GT TO LUQ W/SMALL AMT OF PERISTOMAL CLOTTED BLOOD. 60CC WATER INSTILLED INTO TUBE TO MAINTAIN PATENCY. PT REMAINS NPO. CPN INFUSING PER ORDERS. NO ACUTE CONCERNS AT THIS TIME. WILL CONT TO MONITOR.
[2020-06-07 05:52] LABS: BASOPHILS ABSOLUTE AUTO 0.02 K/mm3 (0.00-0.23); BASOPHILS PERCENT AUTO 0 % (0-2); EOSINOPHILS ABSOLUTE AUTO 0.02 K/mm3 (0.00-0.68); EOSINOPHILS PERCENT AUTO 0 % (0-6); Hematocrit 45.1 % (37.0-53.0); IMMATURE GRAN ABSOLUTE AUTO 0.06 K/mm3 (0.00-0.10); IMMATURE GRAN PERCENT AUTO 0 % (0-1); LYMPHOCYTES ABSOLUTE AUTO 0.86 K/mm3 (0.84-5.20); LYMPHOCYTES PERCENT AUTO 5 % (21-46); MONOCYTES ABSOLUTE AUTO 1.33 K/mm3 (0.16-1.47); MONOCYTES PERCENT AUTO 7 % (4-13); Mean Corpuscular HGB 31.6 pg (26.0-34.0); Mean Corpuscular Volume 102 fL (80-100); Mean Platelet Volume 10.7 fL (9.1-12.4); NEUTROPHILS ABSOLUTE AUTO 16.64 K/mm3 (1.96-9.15); NEUTROPHILS PERCENT AUTO 88 % (41-73); Platelet Count 262 K/mm3 (150-400); RDW Standard Deviation 53.3 fL (35.1-46.3); Red Blood Cell Count 4.43 M/mm3 (4.30-5.90); White Blood Cell Count 18.93 K/mm3 (4.00-11.30)
[2020-06-07 05:56] LABS: Alanine Aminotransfer (ALT/SGP 27 U/L (12-78); Albumin/Globulin Ratio 0.5 (0.8-1.8); Alk Phos 51 U/L (50-136); Anion Gap 0 mmol/L (6-16); Aspartate Aminotrans (AST/SGOT 10 U/L (12-37); Bilirubin, Total 0.9 mg/dL (0.1-1.0); Blood Urea Nitrogen 17 mg/dL (8-24); Bun/Creatinine Ratio 27.1 (12.0-20.0); CO2, Blood 41 mmol/L (21-32); Chloride, Blood 99 mmol/L (98-108); Creatinine, Blood 0.63 mg/dL (0.60-1.20); Globulin, Blood 3.9 g/dL (2.2-4.0); Glomerular Filtration Rate >60 (60-); Glucose, Blood 141 mg/dL (70-99); Magnesium, Blood 2.1 mg/dL (1.6-2.4); Phosphorus, Blood 3.3 mg/dL (2.5-4.9); Potassium, Blood 4.1 mmol/L (3.5-5.5); Prealbumin, Blood 9.1 mg/dL (20.0-40.0); Sodium, Blood 140 mmol/L (136-145); Total Protein, Blood 5.9 g/dL (6.4-8.2); Triglycerides 86 mg/dL (30-160)
--- NOTE | 2020-06-07 19:30 | NUR ---
PT IS A/OX3, PLEASANT AND COOPERATIVE, THE PT IS UP WITH MINIMAL ASSIST TO THE BSC, THE PT WORKED WITH THE PHYSICAL AND OCUUPATIONAL THERAPIST TODAY, AND TOLERATED WELL, THE PT AMBULATED THROUGH THE MEDICAL UNIT DAVIS WITH O2, PT PT WAS MEDICATED FOR PAIN X1 THIS AM, PT DENIED NAUSEA, THE PT PEG TUBE WAS FLUSHED AND DRESSING CHANGED, FAMILY AT THE BESIDE T/O THE DAY, CALL LIGHT IN REACH, O2 TITRATED TO 3L/MIN,
--- NOTE | 2020-06-08 06:23 | NUR ---
SERVICE LEARNING COORDINATOR SUMMARY Edgar slept well after being medicated for generalized body aches he deals with daily with ALS, with 0.5mg dilaudid. (worse now after being stuck for such a long time sick in the hospital), per patient. Patient states no more abdominal pain last night or this morning. Dressing intact over peg tube. Med soft stool mixed in with urine on commode at HS.
[2020-06-08 06:53] LABS: BASOPHILS ABSOLUTE AUTO 0.02 K/mm3 (0.00-0.23); BASOPHILS PERCENT AUTO 0 % (0-2); EOSINOPHILS ABSOLUTE AUTO 0.04 K/mm3 (0.00-0.68); EOSINOPHILS PERCENT AUTO 0 % (0-6); Hematocrit 42.3 % (37.0-53.0); Hemoglobin 13.3 g/dL (13.5-17.5); IMMATURE GRAN ABSOLUTE AUTO 0.06 K/mm3 (0.00-0.10); IMMATURE GRAN PERCENT AUTO 0 % (0-1); LYMPHOCYTES ABSOLUTE AUTO 0.99 K/mm3 (0.84-5.20); LYMPHOCYTES PERCENT AUTO 6 % (21-46); MONOCYTES ABSOLUTE AUTO 1.24 K/mm3 (0.16-1.47); MONOCYTES PERCENT AUTO 8 % (4-13); Mean Corpuscular HGB 31.7 pg (26.0-34.0); Mean Corpuscular HGB Conc 31.4 g/dL (31.5-36.5); Mean Corpuscular Volume 101 fL (80-100); Mean Platelet Volume 10.1 fL (9.1-12.4); NEUTROPHILS ABSOLUTE AUTO 13.43 K/mm3 (1.96-9.15); NEUTROPHILS PERCENT AUTO 85 % (41-73); Platelet Count 246 K/mm3 (150-400); RDW Coefficient Variation 13.7 % (11.7-14.2); RDW Standard Deviation 51.6 fL (35.1-46.3); Red Blood Cell Count 4.19 M/mm3 (4.30-5.90); White Blood Cell Count 15.78 K/mm3 (4.00-11.30)
[2020-06-08 07:13] LABS: Anion Gap 3 mmol/L (6-16); Blood Urea Nitrogen 15 mg/dL (8-24); CO2, Blood 39 mmol/L (21-32); Chloride, Blood 98 mmol/L (98-108); Creatinine, Blood 0.52 mg/dL (0.60-1.20); Glomerular Filtration Rate >60 (60-); Glucose, Blood 120 mg/dL (70-99); Magnesium, Blood 1.8 mg/dL (1.6-2.4); Sodium, Blood 140 mmol/L (136-145)
--- NOTE | 2020-06-08 18:53 | NUR ---
SHIFT SUMMARY. A&OX4, SBA TO BATHROOM OR BSC. PER PHYSICAL THERAPY, PT WAS ABLE TO AMBULATE 300FT. PT ON BIPAP WITH 3L O2 BLEED IN MOST OF THE SHIFT. SOB WITH REST AND WITH EXERTION R/T ALS PER PT. PT DENIES PAIN, SOB. PT CONTINUES WITH CPN AND IV ABX. PROCEDURE PLANNED TOMORROW FOR BIOPSY AND ASPIRATION OF ABCESS WITH RADIOLOGY.
--- NOTE | 2020-06-09 05:23 | NUR ---
SHIFT SUMMARY A/O, ABLE TO MAKE NEEDS KNOWN. COOPERATIVE WITH CARE. CALLS AND ANSWERS QUESTIONS APPROPRIATELY. NO C/O PAIN/DISCOMFORT. REMAINED ON BIPAP/CONT BIOX OVERNIGHT. BECOMES VERY DYSPNEIC UPON ANY TRANSFER. TPN CONTINUED TO INFUSE T/O NIGHT WITH INTERMITTENT ABX TX. TELE RUNNING SINUS TACH IN 100's PER PATTERN DUPLICATOR. NO OTHER ACUTE CHANGES NOTED. APPEARED TO REST OFF AND ON OVERNIGHT. BED REMAINED IN LOWEST POSITION. CALL LIGHT AND BELONGINGS WITHIN REACH. WCTM. REPORT TO ONCOMING RN.
[2020-06-09 05:58] LABS: BASOPHILS ABSOLUTE AUTO 0.02 K/mm3 (0.00-0.23); BASOPHILS PERCENT AUTO 0 % (0-2); EOSINOPHILS ABSOLUTE AUTO 0.07 K/mm3 (0.00-0.68); EOSINOPHILS PERCENT AUTO 0 % (0-6); Hematocrit 42.4 % (37.0-53.0); Hemoglobin 13.4 g/dL (13.5-17.5); IMMATURE GRAN ABSOLUTE AUTO 0.09 K/mm3 (0.00-0.10); IMMATURE GRAN PERCENT AUTO 1 % (0-1); LYMPHOCYTES PERCENT AUTO 5 % (21-46); MONOCYTES ABSOLUTE AUTO 1.25 K/mm3 (0.16-1.47); MONOCYTES PERCENT AUTO 8 % (4-13); Mean Corpuscular HGB 31.8 pg (26.0-34.0); Mean Corpuscular HGB Conc 31.6 g/dL (31.5-36.5); Mean Corpuscular Volume 101 fL (80-100); Mean Platelet Volume 10.3 fL (9.1-12.4); NEUTROPHILS ABSOLUTE AUTO 14.32 K/mm3 (1.96-9.15); NEUTROPHILS PERCENT AUTO 86 % (41-73); Platelet Count 274 K/mm3 (150-400); RDW Coefficient Variation 13.7 % (11.7-14.2); RDW Standard Deviation 50.5 fL (35.1-46.3); Red Blood Cell Count 4.22 M/mm3 (4.30-5.90); White Blood Cell Count 16.65 K/mm3 (4.00-11.30)
[2020-06-09 06:19] LABS: International Normalized Ratio 1.13
[2020-06-09 06:23] LABS: Anion Gap 1 mmol/L (6-16); Blood Urea Nitrogen 13 mg/dL (8-24); Bun/Creatinine Ratio 22.1 (12.0-20.0); CO2, Blood 39 mmol/L (21-32); Calcium, Blood 8.9 mg/dL (8.5-10.1); Chloride, Blood 100 mmol/L (98-108); Creatinine, Blood 0.59 mg/dL (0.60-1.20); Glomerular Filtration Rate >60 (60-); Glucose, Blood 124 mg/dL (70-99); Sodium, Blood 140 mmol/L (136-145)
--- NOTE | 2020-06-09 18:40 | NUR ---
SHIFT SUMMARY. ABCESS DRAIN PLACED THIS AM, DRAINING LIGHT BROWN PURELENT APPEARING DRAINAGE. NO BLEEDING AT DRAINAGE SITE, NO S/SX OF INFECTION, DRESSING C/D/I. PT REPORTED PAIN TO SURGICAL SITE, PAIN MANAGED WITH CURRENT ORDERS. PEG TUBE SITE CLEANSED AND SPLIT SPONGES APPLIED. PT RECIEVED BED BATH. FAMILY AT BEDSIDE MOST OF SHIFT. NO OTHER CHANGES OR CONCERNS.
--- NOTE | 2020-06-10 05:41 | NUR ---
SHIFT SUMMARY PT HAS HAD NO ACUTE CHANGES THIS SHIFT, MEDICATED 1X FOR PAIN, NO OTHER C/O ANY KIND, NEW DRAIN SITE DRESSING CDI, 20MLS BROWN DRAINAGE THIS SHIFT, PT SLEPT T/O THE NIGHT & IS SLEEPING AT THIS TIME, CALL LIGHT IN REACH, WILL CONT TO MONITOR UNTIL REPORT GIVEN TO DAY RN.
[2020-06-10 05:48] LABS: BASOPHILS ABSOLUTE AUTO 0.02 K/mm3 (0.00-0.23); BASOPHILS PERCENT AUTO 0 % (0-2); EOSINOPHILS ABSOLUTE AUTO 0.07 K/mm3 (0.00-0.68); EOSINOPHILS PERCENT AUTO 1 % (0-6); Hematocrit 41.3 % (37.0-53.0); Hemoglobin 12.9 g/dL (13.5-17.5); IMMATURE GRAN ABSOLUTE AUTO 0.08 K/mm3 (0.00-0.10); IMMATURE GRAN PERCENT AUTO 1 % (0-1); LYMPHOCYTES ABSOLUTE AUTO 1.34 K/mm3 (0.84-5.20); LYMPHOCYTES PERCENT AUTO 12 % (21-46); MONOCYTES ABSOLUTE AUTO 0.95 K/mm3 (0.16-1.47); MONOCYTES PERCENT AUTO 9 % (4-13); Mean Corpuscular HGB 31.3 pg (26.0-34.0); Mean Corpuscular HGB Conc 31.2 g/dL (31.5-36.5); Mean Corpuscular Volume 100 fL (80-100); Mean Platelet Volume 10.1 fL (9.1-12.4); NEUTROPHILS PERCENT AUTO 78 % (41-73); Platelet Count 280 K/mm3 (150-400); RDW Coefficient Variation 13.6 % (11.7-14.2); RDW Standard Deviation 50.2 fL (35.1-46.3); Red Blood Cell Count 4.12 M/mm3 (4.30-5.90); White Blood Cell Count 11.16 K/mm3 (4.00-11.30)
--- NOTE | 2020-06-10 18:43 | NUR ---
SHIFT SUMMARY PT WAS STARTED ON TUBE FEEDING THIS AFTERNOON AND TOLERATING WELL. PT HAS DENIED PAIN ALL SHIFT. LORELEI DRAINING WITHOUT DIFFICULTY. PT UP TO BSC WITH 1 ASSIST. PT HAS HAD NO COMPLAINTS. FAMILY AT BEDSIDE ALL SHIFT. NO CHANGES. WILL CONTINUE TO MONITOR AND REPORT TO ONCOMING RN.
--- NOTE | 2020-06-11 04:34 | NUR ---
SHIFT SUMMARY NO ACUTE CHANGES THIS SHIFT, MEDICATED 1X FOR PAIN @ BEDTIME, SLEPT T/O THE NIGHT AFTER ADMIN, TOLERATING TUBE FEEDINGS WELL, PT SLEEPING AT THIS TIME, CALL LIGHT IN REACH, WILL CONT TO MONITOR UNTIL REPORT GIVEN TO DAY RN.
[2020-06-11 05:40] LABS: BASOPHILS ABSOLUTE AUTO 0.04 K/mm3 (0.00-0.23); BASOPHILS PERCENT AUTO 0 % (0-2); EOSINOPHILS ABSOLUTE AUTO 0.11 K/mm3 (0.00-0.68); EOSINOPHILS PERCENT AUTO 1 % (0-6); Hematocrit 44.3 % (37.0-53.0); Hemoglobin 13.7 g/dL (13.5-17.5); IMMATURE GRAN ABSOLUTE AUTO 0.12 K/mm3 (0.00-0.10); IMMATURE GRAN PERCENT AUTO 1 % (0-1); LYMPHOCYTES ABSOLUTE AUTO 1.16 K/mm3 (0.84-5.20); LYMPHOCYTES PERCENT AUTO 12 % (21-46); MONOCYTES ABSOLUTE AUTO 0.91 K/mm3 (0.16-1.47); MONOCYTES PERCENT AUTO 9 % (4-13); Mean Corpuscular HGB 31.5 pg (26.0-34.0); Mean Corpuscular HGB Conc 30.9 g/dL (31.5-36.5); Mean Corpuscular Volume 102 fL (80-100); Mean Platelet Volume 10.1 fL (9.1-12.4); NEUTROPHILS ABSOLUTE AUTO 7.55 K/mm3 (1.96-9.15); NEUTROPHILS PERCENT AUTO 76 % (41-73); Platelet Count 292 K/mm3 (150-400); RDW Coefficient Variation 13.4 % (11.7-14.2); RDW Standard Deviation 50.9 fL (35.1-46.3); Red Blood Cell Count 4.35 M/mm3 (4.30-5.90); White Blood Cell Count 9.89 K/mm3 (4.00-11.30)
[2020-06-11 06:01] LABS: Magnesium, Blood 2.1 mg/dL (1.6-2.4)
[2020-06-11 06:02] LABS: Alanine Aminotransfer (ALT/SGP 25 U/L (12-78); Albumin, Blood 2.1 g/dL (3.4-5.0); Albumin/Globulin Ratio 0.6 (0.8-1.8); Alk Phos 47 U/L (50-136); Anion Gap 3 mmol/L (6-16); Aspartate Aminotrans (AST/SGOT 20 U/L (12-37); Bilirubin, Total 0.3 mg/dL (0.1-1.0); Blood Urea Nitrogen 13 mg/dL (8-24); CO2, Blood 37 mmol/L (21-32); Calcium, Blood 8.6 mg/dL (8.5-10.1); Chloride, Blood 100 mmol/L (98-108); Creatinine, Blood 0.59 mg/dL (0.60-1.20); Globulin, Blood 3.6 g/dL (2.2-4.0); Glomerular Filtration Rate >60 (60-); Glucose, Blood 119 mg/dL (70-99); Phosphorus, Blood 3.8 mg/dL (2.5-4.9); Potassium, Blood 4.2 mmol/L (3.5-5.5); Sodium, Blood 140 mmol/L (136-145); Total Protein, Blood 5.7 g/dL (6.4-8.2)
--- NOTE | 2020-06-11 11:28 | NUR ---
PHYSICIAN NOTIFIED-HTN, MEDS PHYSICIAN CALLED AT 1120 FOR PT BP OF 146/100. PARAMETERS REQUESTED FOR IV HYDRALAZINE. DISCUSSED CONTINUATION OF CRANBERRY EXTRACT MEDICATION AND POSSIBILITY OF RESTARTING PT'S HOME MEDICATIONS. AWAITING FURTHER ORDERS REGARDING MEDICATIONS. THIS RN WILL CONTINUE TO MONITOR PT.
[2020-06-11] MEDS ORDERED: CLON.1 PO (12:36)
--- NOTE | 2020-06-11 19:05 | NUR ---
SHIFT SUMMARY PT IS AOX4 AND PLEASANT. PT DENIES PAIN, N/V. PT IS ONE PERSON ASSIST TO BEDSIDE COMMODE. PT IN WITH PT TODAY. PEG DRESSING WAS CHANGED AND PICC DRESSING CHANGED THIS ROMANA. MINIMAL OUTPUT FROM THE ABSCESS DRAIN. PT IS TOLERATING GOAL FEEDING OF 52 ML/HR WELL. CPN DC'D THIS SHIFT. SON AND IN ROOM INTERMITTENLY THIS SHIFT. PT IS IN BED, CALL LIGHT IN PLACE, LOW POSITION.
--- NOTE | 2020-06-12 04:20 | NUR ---
SHIFT SUMMARY PT HAS HAD NO ACUTE CHANGES THIS SHIFT, NO C/O ANY KIND, CONTINUES TOLERATING TUBE FEEDINGS WELL, SLEPT T/O THE NIGHT, CALL LIGHT IN REACH, WILL CONT TO MONITOR UNTIL REPORT GIVEN TO DAY RN.
--- NOTE | 2020-06-12 12:12 | NUR ---
DR. LIANG REMOVED THE PATIENT'S DRAIN AND PLACED A BANDAID. PATIENT WAS GIVEN CARE INSTRUCTIONS FOR THE SITE AFTER REMOVAL. AT THIS TIME AWAITNG FOR AN ORDER FOR THE PICC LINE TO BE REMOVED PRIOR TO THE PATIENT DISCHARGING.
[2020-06-12] MEDS ORDERED: LACTOBACILLUS1 EAC4 PT (12:27)
[2020-06-12] MEDS ORDERED: CIPR500 PT (12:28)
[2020-06-12] MEDS ORDERED: METR500 PT (12:28)
--- NOTE | 2020-06-12 13:47 | NUR ---
DISCHARGE SUMMARY PATIENT IS PLEASANT, ALERT AND ORIENTED. PATIENT IS PLEASANT, TALKED WITH THE PATIENT AND FAMILY. REPORTS THAT PATIENT IS READY TO GO. PATIENT'S PICC LINE LEFT IN PLACE FOLLOWED BY OUTPATIENT PHYSICIAN. DENIES ANY PROBLEMS AT THIS TIME.
== END 2020-06-12 13:45 | disposition home or self-care (01) | DRG 872 ==
LOC: ER 15:28 → MEDS 21:54 → ENPENDDIS 06-12 11:04 → MEDS 06-12 13:45
PROVIDERS: Family Medicine; Physician Assistant; ADMIT Internal Medicine
PROC: 0W9J30Z Drainage of Pelvic Cavity with Drainage Device, Percutaneous Approach (ICD-10-PCS; principal; 2020-06-09)
DX: A41.9 Sepsis, unspecified organism (principal); K57.20 Diverticulitis of large intestine with perforation and abscess without bleeding; G12.21 Amyotrophic lateral sclerosis; I10 Essential (primary) hypertension; K21.9 Gastro-esophageal reflux disease without esophagitis; R13.10 Dysphagia, unspecified; G47.33 Obstructive sleep apnea (adult) (pediatric); K66.8 Other specified disorders of peritoneum; Z86.73 Personal history of transient ischemic attack (TIA), and cerebral infarction without residual deficits; Z99.81 Dependence on supplemental oxygen; Z93.1 Gastrostomy status
CPT/HCPCS: 36415; 49406; 74018; 74177; 80048; 80053; 80069; 82947; 83605; 83735; 84100; 84134; 84478; 85025; 85027; 85610; 85730; 87040; 87070; 87075; 87205; 88108; 92610; 93005; 93010; 94660; 94762; 96361; 96365-59; 96375; 97110; 97116; 97162; 97165; 97535; 99285-25; J0360; J0744; J1170; J1650; J2543; J3411; J7030; J7050; J7120; Q9967

== ENCOUNTER 2020-06-19 00:22 | Day surgery (SDC) | payer SELFPAY ==
[~2020-06-19 00:22] MED LIST changes: +ASCO500 PT; +CIPR500 PT; +DEXA2 PO; +LACTOBACILLUS1 EAC4 PT; +METR500 PT
[2020-06-19 11:52] LABS: Alanine Aminotransfer (ALT/SGP 26 U/L (12-78); Albumin, Blood 2.6 g/dL (3.4-5.0); Albumin/Globulin Ratio 0.6 (0.8-1.8); Alk Phos 55 U/L (50-136); Anion Gap 1 mmol/L (6-16); Aspartate Aminotrans (AST/SGOT 15 U/L (12-37); Bilirubin, Total 0.3 mg/dL (0.1-1.0); Blood Urea Nitrogen 10 mg/dL (8-24); Bun/Creatinine Ratio 18.1 (12.0-20.0); CO2, Blood 37 mmol/L (21-32); Calcium, Blood 9.1 mg/dL (8.5-10.1); Chloride, Blood 100 mmol/L (98-108); Creatinine, Blood 0.55 mg/dL (0.60-1.20); Globulin, Blood 4.3 g/dL (2.2-4.0); Glomerular Filtration Rate >60 (60-); Glucose, Blood 82 mg/dL (70-99); Potassium, Blood 4.3 mmol/L (3.5-5.5); Sodium, Blood 138 mmol/L (136-145); Total Protein, Blood 6.9 g/dL (6.4-8.2)
[2020-06-19 12:01] LABS: BASOPHILS ABSOLUTE AUTO 0.05 K/mm3 (0.00-0.23); BASOPHILS PERCENT AUTO 0 % (0-2); EOSINOPHILS ABSOLUTE AUTO 0.12 K/mm3 (0.00-0.68); EOSINOPHILS PERCENT AUTO 1 % (0-6); Hematocrit 44.4 % (37.0-53.0); Hemoglobin 13.9 g/dL (13.5-17.5); IMMATURE GRAN ABSOLUTE AUTO 0.05 K/mm3 (0.00-0.10); IMMATURE GRAN PERCENT AUTO 0 % (0-1); LYMPHOCYTES ABSOLUTE AUTO 1.73 K/mm3 (0.84-5.20); LYMPHOCYTES PERCENT AUTO 13 % (21-46); MONOCYTES ABSOLUTE AUTO 0.87 K/mm3 (0.16-1.47); MONOCYTES PERCENT AUTO 6 % (4-13); Mean Corpuscular HGB 31.2 pg (26.0-34.0); Mean Corpuscular HGB Conc 31.3 g/dL (31.5-36.5); Mean Corpuscular Volume 100 fL (80-100); NEUTROPHILS ABSOLUTE AUTO 10.82 K/mm3 (1.96-9.15); NEUTROPHILS PERCENT AUTO 79 % (41-73); Platelet Count 448 K/mm3 (150-400); RDW Coefficient Variation 13.3 % (11.7-14.2); RDW Standard Deviation 48.8 fL (35.1-46.3); Red Blood Cell Count 4.45 M/mm3 (4.30-5.90); White Blood Cell Count 13.64 K/mm3 (4.00-11.30)
--- NOTE | 2020-06-19 13:27 | NUR ---
Lab results from today faxed to Dr. Castillo's office.
== END 2020-06-19 11:26 | disposition home or self-care (01) ==
LOC: ATC 00:22
PROVIDERS: Naturopath
DX: G12.21 Amyotrophic lateral sclerosis (principal); A44.9 Bartonellosis, unspecified; A69.20 Lyme disease, unspecified; Z88.8 Allergy status to other drugs, medicaments and biological substances; Z79.899 Other long term (current) drug therapy
CPT/HCPCS: 80053; 85025

== ENCOUNTER 2020-06-26 00:17 | Day surgery (SDC) | payer SELFPAY | END 2020-06-26 14:24 | disposition home or self-care (01) | LOC: ATC 00:17 | DX: G12.21 Amyotrophic lateral sclerosis (principal); Z88.8 Allergy status to other drugs, medicaments and biological substances; Z79.899 Other long term (current) drug therapy; A44.9 Bartonellosis, unspecified; A69.20 Lyme disease, unspecified ==

== ENCOUNTER 2020-07-03 01:43 | Day surgery (SDC) | payer SELFPAY | END 2020-07-03 11:20 | disposition home or self-care (01) | LOC: ATC 01:43 | DX: G12.21 Amyotrophic lateral sclerosis (principal); Z88.8 Allergy status to other drugs, medicaments and biological substances; A44.9 Bartonellosis, unspecified; A69.20 Lyme disease, unspecified; Z79.899 Other long term (current) drug therapy | CPT/HCPCS: 99211 ==

== ENCOUNTER 2020-07-10 01:50 | Day surgery (SDC) | payer SELFPAY ==
[2020-07-10 12:30] LABS: BASOPHILS ABSOLUTE AUTO 0.04 K/mm3 (0.00-0.23); BASOPHILS PERCENT AUTO 1 % (0-2); EOSINOPHILS ABSOLUTE AUTO 0.07 K/mm3 (0.00-0.68); EOSINOPHILS PERCENT AUTO 1 % (0-6); Hematocrit 42.1 % (37.0-53.0); IMMATURE GRAN ABSOLUTE AUTO 0.03 K/mm3 (0.00-0.10); IMMATURE GRAN PERCENT AUTO 0 % (0-1); LYMPHOCYTES ABSOLUTE AUTO 1.79 K/mm3 (0.84-5.20); LYMPHOCYTES PERCENT AUTO 25 % (21-46); MONOCYTES PERCENT AUTO 7 % (4-13); Mean Corpuscular HGB 30.7 pg (26.0-34.0); Mean Corpuscular HGB Conc 30.9 g/dL (31.5-36.5); Mean Corpuscular Volume 99 fL (80-100); Mean Platelet Volume 10.8 fL (9.1-12.4); NEUTROPHILS ABSOLUTE AUTO 4.68 K/mm3 (1.96-9.15); NEUTROPHILS PERCENT AUTO 66 % (41-73); Platelet Count 423 K/mm3 (150-400); Red Blood Cell Count 4.24 M/mm3 (4.30-5.90); White Blood Cell Count 7.11 K/mm3 (4.00-11.30)
[2020-07-10 12:50] LABS: Alanine Aminotransfer (ALT/SGP 29 U/L (12-78); Albumin, Blood 2.9 g/dL (3.4-5.0); Albumin/Globulin Ratio 0.7 (0.8-1.8); Alk Phos 52 U/L (50-136); Anion Gap 5 mmol/L (6-16); Aspartate Aminotrans (AST/SGOT 15 U/L (12-37); Bilirubin, Total 0.2 mg/dL (0.1-1.0); Blood Urea Nitrogen 14 mg/dL (8-24); Bun/Creatinine Ratio 27.9 (12.0-20.0); CO2, Blood 35 mmol/L (21-32); Calcium, Blood 9.6 mg/dL (8.5-10.1); Chloride, Blood 101 mmol/L (98-108); Glomerular Filtration Rate >60 (60-); Glucose, Blood 73 mg/dL (70-99); Potassium, Blood 4.3 mmol/L (3.5-5.5); Sodium, Blood 141 mmol/L (136-145); Total Protein, Blood 6.9 g/dL (6.4-8.2)
== END 2020-07-10 11:40 | disposition home or self-care (01) ==
LOC: ATC 01:50
PROVIDERS: Naturopath
DX: G12.21 Amyotrophic lateral sclerosis (principal); A44.9 Bartonellosis, unspecified; A69.20 Lyme disease, unspecified; Z88.8 Allergy status to other drugs, medicaments and biological substances
CPT/HCPCS: 36592; 80053; 85025

== ENCOUNTER 2020-07-17 02:02 | Day surgery (SDC) | payer SELFPAY ==
[2020-07-17 12:05] LABS: BASOPHILS ABSOLUTE AUTO 0.02 K/mm3 (0.00-0.23); BASOPHILS PERCENT AUTO 0 % (0-2); EOSINOPHILS ABSOLUTE AUTO 0.02 K/mm3 (0.00-0.68); EOSINOPHILS PERCENT AUTO 0 % (0-6); Hematocrit 42.4 % (37.0-53.0); Hemoglobin 13.3 g/dL (13.5-17.5); IMMATURE GRAN ABSOLUTE AUTO 0.04 K/mm3 (0.00-0.10); IMMATURE GRAN PERCENT AUTO 1 % (0-1); LYMPHOCYTES PERCENT AUTO 7 % (21-46); MONOCYTES PERCENT AUTO 2 % (4-13); Mean Corpuscular HGB 30.8 pg (26.0-34.0); Mean Corpuscular HGB Conc 31.4 g/dL (31.5-36.5); Mean Corpuscular Volume 98 fL (80-100); Mean Platelet Volume 10.6 fL (9.1-12.4); NEUTROPHILS ABSOLUTE AUTO 7.32 K/mm3 (1.96-9.15); NEUTROPHILS PERCENT AUTO 89 % (41-73); Platelet Count 387 K/mm3 (150-400); RDW Coefficient Variation 12.9 % (11.7-14.2); RDW Standard Deviation 46.5 fL (35.1-46.3); Red Blood Cell Count 4.32 M/mm3 (4.30-5.90)
[2020-07-17 12:21] LABS: Alanine Aminotransfer (ALT/SGP 23 U/L (12-78); Albumin, Blood 2.9 g/dL (3.4-5.0); Albumin/Globulin Ratio 0.7 (0.8-1.8); Alk Phos 58 U/L (50-136); Anion Gap 0 mmol/L (6-16); Aspartate Aminotrans (AST/SGOT 11 U/L (12-37); Bilirubin, Total 0.3 mg/dL (0.1-1.0); Blood Urea Nitrogen 12 mg/dL (8-24); Bun/Creatinine Ratio 22.6 (12.0-20.0); CO2, Blood 40 mmol/L (21-32); Calcium, Blood 9.6 mg/dL (8.5-10.1); Chloride, Blood 98 mmol/L (98-108); Creatinine, Blood 0.53 mg/dL (0.60-1.20); Globulin, Blood 4.4 g/dL (2.2-4.0); Glomerular Filtration Rate >60 (60-); Glucose, Blood 135 mg/dL (70-99); Potassium, Blood 4.3 mmol/L (3.5-5.5); Sodium, Blood 138 mmol/L (136-145); Total Protein, Blood 7.3 g/dL (6.4-8.2)
== END 2020-07-17 11:40 | disposition home or self-care (01) ==
LOC: ATC 02:02
PROVIDERS: Naturopath
DX: Z48.01 Encounter for change or removal of surgical wound dressing (principal); A44.0 Systemic bartonellosis; A69.20 Lyme disease, unspecified; G12.21 Amyotrophic lateral sclerosis; M62.81 Muscle weakness (generalized); R13.10 Dysphagia, unspecified; G47.30 Sleep apnea, unspecified; Z88.8 Allergy status to other drugs, medicaments and biological substances; Z86.73 Personal history of transient ischemic attack (TIA), and cerebral infarction without residual deficits; Z79.82 Long term (current) use of aspirin; Z79.2 Long term (current) use of antibiotics; Z79.899 Other long term (current) drug therapy; Z51.5 Encounter for palliative care
CPT/HCPCS: 36592; 80053; 85025

== ENCOUNTER 2020-07-24 01:38 | Day surgery (SDC) | payer SELFPAY ==
[2020-07-24 12:29] LABS: BASOPHILS ABSOLUTE AUTO 0.03 K/mm3 (0.00-0.23); BASOPHILS PERCENT AUTO 0 % (0-2); EOSINOPHILS ABSOLUTE AUTO 0.13 K/mm3 (0.00-0.68); EOSINOPHILS PERCENT AUTO 1 % (0-6); Hematocrit 41.1 % (37.0-53.0); Hemoglobin 12.6 g/dL (13.5-17.5); IMMATURE GRAN ABSOLUTE AUTO 0.06 K/mm3 (0.00-0.10); IMMATURE GRAN PERCENT AUTO 1 % (0-1); LYMPHOCYTES ABSOLUTE AUTO 1.94 K/mm3 (0.84-5.20); LYMPHOCYTES PERCENT AUTO 16 % (21-46); MONOCYTES PERCENT AUTO 5 % (4-13); Mean Corpuscular HGB 30.4 pg (26.0-34.0); Mean Corpuscular HGB Conc 30.7 g/dL (31.5-36.5); Mean Corpuscular Volume 99 fL (80-100); NEUTROPHILS ABSOLUTE AUTO 9.76 K/mm3 (1.96-9.15); NEUTROPHILS PERCENT AUTO 78 % (41-73); Platelet Count 382 K/mm3 (150-400); RDW Coefficient Variation 13.2 % (11.7-14.2); RDW Standard Deviation 48.4 fL (35.1-46.3); Red Blood Cell Count 4.14 M/mm3 (4.30-5.90); White Blood Cell Count 12.52 K/mm3 (4.00-11.30)
[2020-07-24 12:44] LABS: Alanine Aminotransfer (ALT/SGP 17 U/L (12-78); Albumin, Blood 2.9 g/dL (3.4-5.0); Albumin/Globulin Ratio 0.8 (0.8-1.8); Alk Phos 56 U/L (50-136); Anion Gap 4 mmol/L (6-16); Aspartate Aminotrans (AST/SGOT 7 U/L (12-37); Bilirubin, Total 0.2 mg/dL (0.1-1.0); Blood Urea Nitrogen 11 mg/dL (8-24); Bun/Creatinine Ratio 20.1 (12.0-20.0); CO2, Blood 36 mmol/L (21-32); Calcium, Blood 9.3 mg/dL (8.5-10.1); Chloride, Blood 100 mmol/L (98-108); Creatinine, Blood 0.55 mg/dL (0.60-1.20); Globulin, Blood 3.8 g/dL (2.2-4.0); Glomerular Filtration Rate >60 (60-); Glucose, Blood 118 mg/dL (70-99); Potassium, Blood 3.6 mmol/L (3.5-5.5); Sodium, Blood 140 mmol/L (136-145); Total Protein, Blood 6.7 g/dL (6.4-8.2)
== END 2020-07-24 11:35 | disposition home or self-care (01) ==
LOC: ATC 01:38
PROVIDERS: Naturopath
DX: G12.21 Amyotrophic lateral sclerosis (principal); A44.9 Bartonellosis, unspecified; A69.20 Lyme disease, unspecified; Z79.899 Other long term (current) drug therapy
CPT/HCPCS: 80053; 85025

== ENCOUNTER 2020-07-31 00:30 | Day surgery (SDC) | payer SELFPAY ==
[2020-07-31] MEDS ORDERED: [UNRECOGNIZED DRUG - OTHER] PO (11:46)
[2020-07-31] MEDS ORDERED: [UNRECOGNIZED DRUG - OTHER] PO (11:52)
[2020-07-31 12:02] LABS: BASOPHILS ABSOLUTE AUTO 0.03 K/mm3 (0.00-0.23); BASOPHILS PERCENT AUTO 0 % (0-2); EOSINOPHILS ABSOLUTE AUTO 0.03 K/mm3 (0.00-0.68); EOSINOPHILS PERCENT AUTO 0 % (0-6); Hematocrit 41.9 % (37.0-53.0); Hemoglobin 13.2 g/dL (13.5-17.5); IMMATURE GRAN ABSOLUTE AUTO 0.06 K/mm3 (0.00-0.10); IMMATURE GRAN PERCENT AUTO 0 % (0-1); LYMPHOCYTES ABSOLUTE AUTO 1.29 K/mm3 (0.84-5.20); LYMPHOCYTES PERCENT AUTO 10 % (21-46); MONOCYTES ABSOLUTE AUTO 0.65 K/mm3 (0.16-1.47); MONOCYTES PERCENT AUTO 5 % (4-13); Mean Corpuscular HGB 31.4 pg (26.0-34.0); Mean Corpuscular HGB Conc 31.5 g/dL (31.5-36.5); Mean Corpuscular Volume 100 fL (80-100); Mean Platelet Volume 10.2 fL (9.1-12.4); NEUTROPHILS PERCENT AUTO 85 % (41-73); Platelet Count 347 K/mm3 (150-400); RDW Coefficient Variation 14.2 % (11.7-14.2); RDW Standard Deviation 51.3 fL (35.1-46.3); White Blood Cell Count 13.46 K/mm3 (4.00-11.30)
[2020-07-31 12:22] LABS: Alanine Aminotransfer (ALT/SGP 18 U/L (12-78); Albumin, Blood 3.1 g/dL (3.4-5.0); Albumin/Globulin Ratio 0.8 (0.8-1.8); Alk Phos 56 U/L (50-136); Anion Gap 2 mmol/L (6-16); Aspartate Aminotrans (AST/SGOT 8 U/L (12-37); Bilirubin, Total 0.4 mg/dL (0.1-1.0); Blood Urea Nitrogen 13 mg/dL (8-24); Bun/Creatinine Ratio 22.5 (12.0-20.0); CO2, Blood 37 mmol/L (21-32); Calcium, Blood 9.1 mg/dL (8.5-10.1); Chloride, Blood 102 mmol/L (98-108); Creatinine, Blood 0.58 mg/dL (0.60-1.20); Globulin, Blood 3.8 g/dL (2.2-4.0); Glomerular Filtration Rate >60 (60-); Glucose, Blood 108 mg/dL (70-99); Potassium, Blood 4.1 mmol/L (3.5-5.5); Sodium, Blood 141 mmol/L (136-145); Total Protein, Blood 6.9 g/dL (6.4-8.2)
--- NOTE | 2020-07-31 12:28 | NUR ---
LAB RESULTS FROM TODAY FAXED TO DR. FLORES'S OFFICE.
== END 2020-07-31 11:24 | disposition home or self-care (01) ==
LOC: ATC 00:30
PROVIDERS: Naturopath
DX: G12.21 Amyotrophic lateral sclerosis (principal); Z88.8 Allergy status to other drugs, medicaments and biological substances; A44.9 Bartonellosis, unspecified; A69.20 Lyme disease, unspecified; Z79.899 Other long term (current) drug therapy
CPT/HCPCS: 80053; 85025

== ENCOUNTER 2020-08-07 00:38 | Day surgery (SDC) | payer SELFPAY ==
[~2020-08-07 00:38] MED LIST changes: +[UNRECOGNIZED DRUG - OTHER] PO; +[UNRECOGNIZED DRUG - OTHER] PO
[2020-08-07 11:37] LABS: BASOPHILS ABSOLUTE AUTO 0.02 K/mm3 (0.00-0.23); BASOPHILS PERCENT AUTO 0 % (0-2); EOSINOPHILS ABSOLUTE AUTO 0.06 K/mm3 (0.00-0.68); EOSINOPHILS PERCENT AUTO 1 % (0-6); Hematocrit 44.6 % (37.0-53.0); Hemoglobin 13.7 g/dL (13.5-17.5); IMMATURE GRAN ABSOLUTE AUTO 0.04 K/mm3 (0.00-0.10); IMMATURE GRAN PERCENT AUTO 0 % (0-1); LYMPHOCYTES ABSOLUTE AUTO 1.07 K/mm3 (0.84-5.20); LYMPHOCYTES PERCENT AUTO 9 % (21-46); MONOCYTES ABSOLUTE AUTO 0.51 K/mm3 (0.16-1.47); MONOCYTES PERCENT AUTO 4 % (4-13); Mean Corpuscular HGB 31.2 pg (26.0-34.0); Mean Corpuscular HGB Conc 30.7 g/dL (31.5-36.5); Mean Corpuscular Volume 102 fL (80-100); Mean Platelet Volume 10.1 fL (9.1-12.4); NEUTROPHILS ABSOLUTE AUTO 10.32 K/mm3 (1.96-9.15); NEUTROPHILS PERCENT AUTO 86 % (41-73); Platelet Count 348 K/mm3 (150-400); RDW Coefficient Variation 14.6 % (11.7-14.2); RDW Standard Deviation 54.8 fL (35.1-46.3); Red Blood Cell Count 4.39 M/mm3 (4.30-5.90); White Blood Cell Count 12.02 K/mm3 (4.00-11.30)
[2020-08-07 11:56] LABS: Alanine Aminotransfer (ALT/SGP 20 U/L (12-78); Albumin, Blood 3.2 g/dL (3.4-5.0); Albumin/Globulin Ratio 0.9 (0.8-1.8); Alk Phos 63 U/L (50-136); Anion Gap 3 mmol/L (6-16); Aspartate Aminotrans (AST/SGOT 15 U/L (12-37); Bilirubin, Total 0.4 mg/dL (0.1-1.0); Blood Urea Nitrogen 15 mg/dL (8-24); Bun/Creatinine Ratio 23.5 (12.0-20.0); CO2, Blood 36 mmol/L (21-32); Calcium, Blood 9.2 mg/dL (8.5-10.1); Chloride, Blood 102 mmol/L (98-108); Creatinine, Blood 0.64 mg/dL (0.60-1.20); Globulin, Blood 3.6 g/dL (2.2-4.0); Glomerular Filtration Rate >60 (60-); Glucose, Blood 90 mg/dL (70-99); Potassium, Blood 4.6 mmol/L (3.5-5.5); Sodium, Blood 141 mmol/L (136-145); Total Protein, Blood 6.8 g/dL (6.4-8.2)
== END 2020-08-07 11:30 | disposition home or self-care (01) ==
LOC: ATC 00:38
PROVIDERS: Naturopath
DX: Z48.01 Encounter for change or removal of surgical wound dressing (principal); A44.0 Systemic bartonellosis; A69.20 Lyme disease, unspecified; G12.21 Amyotrophic lateral sclerosis; M62.81 Muscle weakness (generalized); R13.10 Dysphagia, unspecified; G47.30 Sleep apnea, unspecified; Z79.82 Long term (current) use of aspirin; Z88.8 Allergy status to other drugs, medicaments and biological substances; Z79.899 Other long term (current) drug therapy; Z86.73 Personal history of transient ischemic attack (TIA), and cerebral infarction without residual deficits
CPT/HCPCS: 36592; 80053; 85025

== ENCOUNTER 2020-08-14 00:27 | Day surgery (SDC) | payer SELFPAY ==
[2020-08-14 11:37] LABS: BASOPHILS ABSOLUTE AUTO 0.04 K/mm3 (0.00-0.23); BASOPHILS PERCENT AUTO 0 % (0-2); EOSINOPHILS ABSOLUTE AUTO 0.14 K/mm3 (0.00-0.68); EOSINOPHILS PERCENT AUTO 1 % (0-6); Hematocrit 47.5 % (37.0-53.0); Hemoglobin 14.6 g/dL (13.5-17.5); IMMATURE GRAN ABSOLUTE AUTO 0.03 K/mm3 (0.00-0.10); IMMATURE GRAN PERCENT AUTO 0 % (0-1); LYMPHOCYTES ABSOLUTE AUTO 1.59 K/mm3 (0.84-5.20); LYMPHOCYTES PERCENT AUTO 16 % (21-46); MONOCYTES ABSOLUTE AUTO 0.82 K/mm3 (0.16-1.47); MONOCYTES PERCENT AUTO 8 % (4-13); Mean Corpuscular HGB Conc 30.7 g/dL (31.5-36.5); Mean Corpuscular Volume 101 fL (80-100); NEUTROPHILS ABSOLUTE AUTO 7.28 K/mm3 (1.96-9.15); NEUTROPHILS PERCENT AUTO 74 % (41-73); Platelet Count 336 K/mm3 (150-400); RDW Coefficient Variation 14.5 % (11.7-14.2); RDW Standard Deviation 54.9 fL (35.1-46.3); Red Blood Cell Count 4.71 M/mm3 (4.30-5.90)
[2020-08-14 12:21] LABS: Alanine Aminotransfer (ALT/SGP 23 U/L (12-78); Albumin/Globulin Ratio 0.8 (0.8-1.8); Alk Phos 84 U/L (50-136); Anion Gap 0 mmol/L (6-16); Aspartate Aminotrans (AST/SGOT 15 U/L (12-37); Bilirubin, Total 0.6 mg/dL (0.1-1.0); Blood Urea Nitrogen 13 mg/dL (8-24); Bun/Creatinine Ratio 21.4 (12.0-20.0); CO2, Blood 41 mmol/L (21-32); Calcium, Blood 9.6 mg/dL (8.5-10.1); Chloride, Blood 98 mmol/L (98-108); Creatinine, Blood 0.61 mg/dL (0.60-1.20); Globulin, Blood 3.9 g/dL (2.2-4.0); Glomerular Filtration Rate >60 (60-); Glucose, Blood 96 mg/dL (70-99); Potassium, Blood 4.3 mmol/L (3.5-5.5); Sodium, Blood 139 mmol/L (136-145); Total Protein, Blood 6.9 g/dL (6.4-8.2)
== END 2020-08-14 11:00 | disposition home or self-care (01) ==
LOC: ATC 00:27
PROVIDERS: Naturopath
DX: G12.21 Amyotrophic lateral sclerosis (principal); A44.9 Bartonellosis, unspecified; A69.20 Lyme disease, unspecified; Z88.8 Allergy status to other drugs, medicaments and biological substances
CPT/HCPCS: 80053; 85025

== ENCOUNTER 2020-08-21 00:39 | Day surgery (SDC) | payer SELFPAY ==
[2020-08-21 10:47] LABS: BASOPHILS ABSOLUTE AUTO 0.03 K/mm3 (0.00-0.23); BASOPHILS PERCENT AUTO 0 % (0-2); EOSINOPHILS ABSOLUTE AUTO 0.11 K/mm3 (0.00-0.68); EOSINOPHILS PERCENT AUTO 1 % (0-6); IMMATURE GRAN ABSOLUTE AUTO 0.03 K/mm3 (0.00-0.10); IMMATURE GRAN PERCENT AUTO 0 % (0-1); LYMPHOCYTES PERCENT AUTO 12 % (21-46); MONOCYTES ABSOLUTE AUTO 0.72 K/mm3 (0.16-1.47); MONOCYTES PERCENT AUTO 7 % (4-13); Mean Corpuscular HGB 31.6 pg (26.0-34.0); Mean Corpuscular HGB Conc 31.1 g/dL (31.5-36.5); Mean Corpuscular Volume 102 fL (80-100); Mean Platelet Volume 10.5 fL (9.1-12.4); NEUTROPHILS ABSOLUTE AUTO 8.67 K/mm3 (1.96-9.15); NEUTROPHILS PERCENT AUTO 80 % (41-73); Platelet Count 340 K/mm3 (150-400); RDW Coefficient Variation 13.7 % (11.7-14.2); RDW Standard Deviation 51.9 fL (35.1-46.3); Red Blood Cell Count 4.43 M/mm3 (4.30-5.90); White Blood Cell Count 10.86 K/mm3 (4.00-11.30)
[2020-08-21 11:18] LABS: Alanine Aminotransfer (ALT/SGP 38 U/L (12-78); Albumin, Blood 2.9 g/dL (3.4-5.0); Albumin/Globulin Ratio 0.8 (0.8-1.8); Alk Phos 79 U/L (50-136); Anion Gap -1 mmol/L (6-16); Aspartate Aminotrans (AST/SGOT 25 U/L (12-37); Bilirubin, Total 0.5 mg/dL (0.1-1.0); Blood Urea Nitrogen 10 mg/dL (8-24); Bun/Creatinine Ratio 17.6 (12.0-20.0); CO2, Blood 43 mmol/L (21-32); Chloride, Blood 96 mmol/L (98-108); Creatinine, Blood 0.57 mg/dL (0.60-1.20); Globulin, Blood 3.8 g/dL (2.2-4.0); Glomerular Filtration Rate >60 (60-); Glucose, Blood 118 mg/dL (70-99); Potassium, Blood 4.2 mmol/L (3.5-5.5); Sodium, Blood 138 mmol/L (136-145); Total Protein, Blood 6.7 g/dL (6.4-8.2)
--- NOTE | 2020-08-21 11:22 | NUR ---
LAB RESULTS FROM TODAY FAXED TO DR. FLORES'S OFFICE.
== END 2020-08-21 10:28 | disposition home or self-care (01) ==
LOC: ATC 00:39
PROVIDERS: Naturopath
DX: G12.21 Amyotrophic lateral sclerosis (principal); A44.9 Bartonellosis, unspecified; A69.20 Lyme disease, unspecified; Z88.8 Allergy status to other drugs, medicaments and biological substances; Z79.899 Other long term (current) drug therapy
CPT/HCPCS: 80053; 85025

== ENCOUNTER 2020-09-09 12:19 | Emergency (ER) | payer SELFPAY ==
[~2020-09-09] VITALS: Ht 180.3 cm; Wt 74.8 kg
[2020-09-09 13:22] LABS: Anion Gap 1 mmol/L (6-16); Blood Urea Nitrogen 13 mg/dL (8-24); Bun/Creatinine Ratio 21.5 (12.0-20.0); CO2, Blood 39 mmol/L (21-32); Calcium, Blood 9.3 mg/dL (8.5-10.1); Chloride, Blood 97 mmol/L (98-108); Glomerular Filtration Rate >60 (60-); Glucose, Blood 106 mg/dL (70-99); Potassium, Blood 4.5 mmol/L (3.5-5.5); Sodium, Blood 137 mmol/L (136-145); Troponin I <0.015 ng/mL (0.000-0.040)
[2020-09-09 13:23] LABS: Alanine Aminotransfer (ALT/SGP 88 U/L (12-78); Albumin/Globulin Ratio 0.7 (0.8-1.8); Alk Phos 81 U/L (50-136); Aspartate Aminotrans (AST/SGOT 37 U/L (12-37); Bilirubin, Total 0.5 mg/dL (0.1-1.0); Globulin, Blood 4.1 g/dL (2.2-4.0); Total Protein, Blood 7.1 g/dL (6.4-8.2)
== END 2020-09-09 15:58 | disposition home or self-care (01) ==
LOC: ER 12:19
PROVIDERS: Emergency Medicine
DX: R55 Syncope and collapse (principal); I10 Essential (primary) hypertension; K21.9 Gastro-esophageal reflux disease without esophagitis; Z88.8 Allergy status to other drugs, medicaments and biological substances; Z79.82 Long term (current) use of aspirin; Z79.899 Other long term (current) drug therapy
CPT/HCPCS: 80053; 83880; 84484; 93005; 93010; 99284-25

== ENCOUNTER 2020-09-11 00:32 | Day surgery (SDC) | payer SELFPAY ==
[2020-09-11 11:48] LABS: BASOPHILS ABSOLUTE AUTO 0.04 K/mm3 (0.00-0.23); BASOPHILS PERCENT AUTO 0 % (0-2); EOSINOPHILS ABSOLUTE AUTO 0.09 K/mm3 (0.00-0.68); EOSINOPHILS PERCENT AUTO 1 % (0-6); Hematocrit 44.4 % (37.0-53.0); Hemoglobin 13.7 g/dL (13.5-17.5); IMMATURE GRAN ABSOLUTE AUTO 0.03 K/mm3 (0.00-0.10); IMMATURE GRAN PERCENT AUTO 0 % (0-1); LYMPHOCYTES PERCENT AUTO 14 % (21-46); MONOCYTES ABSOLUTE AUTO 0.92 K/mm3 (0.16-1.47); MONOCYTES PERCENT AUTO 8 % (4-13); Mean Corpuscular HGB 31.4 pg (26.0-34.0); Mean Corpuscular HGB Conc 30.9 g/dL (31.5-36.5); Mean Corpuscular Volume 102 fL (80-100); Mean Platelet Volume 11.1 fL (9.1-12.4); NEUTROPHILS ABSOLUTE AUTO 8.83 K/mm3 (1.96-9.15); NEUTROPHILS PERCENT AUTO 77 % (41-73); Platelet Count 347 K/mm3 (150-400); RDW Coefficient Variation 12.9 % (11.7-14.2); RDW Standard Deviation 48.2 fL (35.1-46.3); Red Blood Cell Count 4.37 M/mm3 (4.30-5.90); White Blood Cell Count 11.51 K/mm3 (4.00-11.30)
[2020-09-11 12:20] LABS: Alanine Aminotransfer (ALT/SGP 96 U/L (12-78); Albumin, Blood 3.1 g/dL (3.4-5.0); Albumin/Globulin Ratio 0.8 (0.8-1.8); Alk Phos 86 U/L (50-136); Anion Gap 1 mmol/L (6-16); Aspartate Aminotrans (AST/SGOT 38 U/L (12-37); Bilirubin, Total 0.5 mg/dL (0.1-1.0); Blood Urea Nitrogen 12 mg/dL (8-24); Bun/Creatinine Ratio 20.5 (12.0-20.0); CO2, Blood 40 mmol/L (21-32); Calcium, Blood 9.5 mg/dL (8.5-10.1); Chloride, Blood 97 mmol/L (98-108); Creatinine, Blood 0.59 mg/dL (0.60-1.20); Globulin, Blood 3.9 g/dL (2.2-4.0); Glomerular Filtration Rate >60 (60-); Glucose, Blood 86 mg/dL (70-99); Potassium, Blood 4.6 mmol/L (3.5-5.5); Sodium, Blood 138 mmol/L (136-145)
== END 2020-09-11 11:27 | disposition home or self-care (01) ==
LOC: ATC 00:32
PROVIDERS: Naturopath
DX: G12.21 Amyotrophic lateral sclerosis (principal); A44.9 Bartonellosis, unspecified; A69.20 Lyme disease, unspecified; Z88.8 Allergy status to other drugs, medicaments and biological substances
CPT/HCPCS: 80053; 85025

== ENCOUNTER 2020-09-16 06:37 | Day surgery (SDC) | payer SELFPAY ==
[2020-09-16 09:57] LABS: Hematocrit 43.5 % (37.0-53.0); Hemoglobin 13.5 g/dL (13.5-17.5); Mean Corpuscular HGB 31.3 pg (26.0-34.0); Mean Corpuscular Volume 101 fL (80-100); Platelet Count 319 K/mm3 (150-400); RDW Coefficient Variation 12.9 % (11.7-14.2); RDW Standard Deviation 48.2 fL (35.1-46.3); Red Blood Cell Count 4.31 M/mm3 (4.30-5.90); White Blood Cell Count 8.75 K/mm3 (4.00-11.30)
[2020-09-16 10:27] LABS: Alanine Aminotransfer (ALT/SGP 116 U/L (12-78); Albumin, Blood 2.9 g/dL (3.4-5.0); Albumin/Globulin Ratio 0.7 (0.8-1.8); Alk Phos 87 U/L (50-136); Anion Gap 4 mmol/L (6-16); Aspartate Aminotrans (AST/SGOT 43 U/L (12-37); Bilirubin, Total 0.4 mg/dL (0.1-1.0); Blood Urea Nitrogen 13 mg/dL (8-24); Bun/Creatinine Ratio 23.1 (12.0-20.0); CO2, Blood 37 mmol/L (21-32); Calcium, Blood 9.8 mg/dL (8.5-10.1); Chloride, Blood 96 mmol/L (98-108); Creatinine, Blood 0.56 mg/dL (0.60-1.20); Globulin, Blood 3.9 g/dL (2.2-4.0); Glomerular Filtration Rate >60 (60-); Glucose, Blood 139 mg/dL (70-99); Potassium, Blood 4.1 mmol/L (3.5-5.5); Sodium, Blood 137 mmol/L (136-145); Total Protein, Blood 6.8 g/dL (6.4-8.2)
--- NOTE | 2020-09-16 10:40 | NUR ---
LABS FAXED TO DR. FLORES'S OFFICE.
== END 2020-09-16 09:25 | disposition home or self-care (01) ==
LOC: ATC 06:37
PROVIDERS: Naturopath
DX: Z48.00 Encounter for change or removal of nonsurgical wound dressing (principal); A44.9 Bartonellosis, unspecified; A69.20 Lyme disease, unspecified; G12.21 Amyotrophic lateral sclerosis; M62.81 Muscle weakness (generalized); R13.10 Dysphagia, unspecified; G47.30 Sleep apnea, unspecified; Z79.82 Long term (current) use of aspirin; Z79.899 Other long term (current) drug therapy; Z88.8 Allergy status to other drugs, medicaments and biological substances; Z86.73 Personal history of transient ischemic attack (TIA), and cerebral infarction without residual deficits
CPT/HCPCS: 36592; 80053; 85027

== ENCOUNTER 2020-09-23 00:58 | Day surgery (SDC) | payer SELFPAY ==
[2020-09-23 11:41] LABS: Alanine Aminotransfer (ALT/SGP 148 U/L (12-78); Albumin, Blood 2.8 g/dL (3.4-5.0); Albumin/Globulin Ratio 0.7 (0.8-1.8); Alk Phos 93 U/L (50-136); Anion Gap 1 mmol/L (6-16); Aspartate Aminotrans (AST/SGOT 47 U/L (12-37); Bilirubin, Total 0.5 mg/dL (0.1-1.0); Blood Urea Nitrogen 12 mg/dL (8-24); Bun/Creatinine Ratio 21.6 (12.0-20.0); CO2, Blood 41 mmol/L (21-32); Calcium, Blood 9.1 mg/dL (8.5-10.1); Chloride, Blood 98 mmol/L (98-108); Creatinine, Blood 0.56 mg/dL (0.60-1.20); Globulin, Blood 4.2 g/dL (2.2-4.0); Glomerular Filtration Rate >60 (60-); Glucose, Blood 85 mg/dL (70-99); Potassium, Blood 4.6 mmol/L (3.5-5.5); Sodium, Blood 140 mmol/L (136-145)
[2020-09-23 11:43] LABS: BASOPHILS ABSOLUTE AUTO 0.04 K/mm3 (0.00-0.23); BASOPHILS PERCENT AUTO 0 % (0-2); EOSINOPHILS ABSOLUTE AUTO 0.11 K/mm3 (0.00-0.68); EOSINOPHILS PERCENT AUTO 1 % (0-6); Hematocrit 43.6 % (37.0-53.0); Hemoglobin 13.6 g/dL (13.5-17.5); IMMATURE GRAN ABSOLUTE AUTO 0.04 K/mm3 (0.00-0.10); IMMATURE GRAN PERCENT AUTO 0 % (0-1); LYMPHOCYTES PERCENT AUTO 13 % (21-46); MONOCYTES ABSOLUTE AUTO 1.03 K/mm3 (0.16-1.47); MONOCYTES PERCENT AUTO 9 % (4-13); Mean Corpuscular HGB 31.7 pg (26.0-34.0); Mean Corpuscular HGB Conc 31.2 g/dL (31.5-36.5); Mean Corpuscular Volume 102 fL (80-100); Mean Platelet Volume 10.9 fL (9.1-12.4); NEUTROPHILS ABSOLUTE AUTO 8.52 K/mm3 (1.96-9.15); NEUTROPHILS PERCENT AUTO 76 % (41-73); Platelet Count 367 K/mm3 (150-400); RDW Coefficient Variation 12.9 % (11.7-14.2); Red Blood Cell Count 4.29 M/mm3 (4.30-5.90); White Blood Cell Count 11.24 K/mm3 (4.00-11.30)
--- NOTE | 2020-09-23 15:01 | NUR ---
TODAYS LABS FAXED TO DR. DIEGO FLORES.
== END 2020-09-23 11:06 | disposition home or self-care (01) ==
LOC: ATC 00:58
PROVIDERS: Naturopath
DX: Z48.00 Encounter for change or removal of nonsurgical wound dressing (principal); G47.30 Sleep apnea, unspecified; A44.9 Bartonellosis, unspecified; A69.20 Lyme disease, unspecified; G12.21 Amyotrophic lateral sclerosis; M62.81 Muscle weakness (generalized); R13.10 Dysphagia, unspecified; Z79.82 Long term (current) use of aspirin; Z79.899 Other long term (current) drug therapy; Z20.828 Contact with and (suspected) exposure to other viral communicable diseases; Z86.73 Personal history of transient ischemic attack (TIA), and cerebral infarction without residual deficits; Z88.8 Allergy status to other drugs, medicaments and biological substances
CPT/HCPCS: 36592; 80053; 85025

== ENCOUNTER 2020-09-30 00:16 | Day surgery (SDC) | payer SELFPAY ==
[~2020-09-30 00:16] MED LIST changes: -Aspirin EC81 MG PT; -Depo-Testos200 MG/ML IM; -Prinivil10 MG PT; -RILUZOLE50 MG PT; -[UNRECOGNIZED DRUG - OTHER] PO; -[UNRECOGNIZED DRUG - OTHER] PO
[2020-09-30 12:32] LABS: BASOPHILS ABSOLUTE AUTO 0.03 K/mm3 (0.00-0.23); BASOPHILS PERCENT AUTO 0 % (0-2); EOSINOPHILS ABSOLUTE AUTO 0.09 K/mm3 (0.00-0.68); EOSINOPHILS PERCENT AUTO 1 % (0-6); Hematocrit 44.1 % (37.0-53.0); Hemoglobin 13.3 g/dL (13.5-17.5); IMMATURE GRAN ABSOLUTE AUTO 0.03 K/mm3 (0.00-0.10); IMMATURE GRAN PERCENT AUTO 0 % (0-1); LYMPHOCYTES ABSOLUTE AUTO 1.02 K/mm3 (0.84-5.20); LYMPHOCYTES PERCENT AUTO 12 % (21-46); MONOCYTES ABSOLUTE AUTO 0.64 K/mm3 (0.16-1.47); MONOCYTES PERCENT AUTO 7 % (4-13); Mean Corpuscular HGB 31.1 pg (26.0-34.0); Mean Corpuscular HGB Conc 30.2 g/dL (31.5-36.5); Mean Corpuscular Volume 103 fL (80-100); Mean Platelet Volume 11.1 fL (9.1-12.4); NEUTROPHILS ABSOLUTE AUTO 6.83 K/mm3 (1.96-9.15); NEUTROPHILS PERCENT AUTO 79 % (41-73); Platelet Count 351 K/mm3 (150-400); RDW Coefficient Variation 12.8 % (11.7-14.2); Red Blood Cell Count 4.27 M/mm3 (4.30-5.90); White Blood Cell Count 8.64 K/mm3 (4.00-11.30)
[2020-09-30 12:36] LABS: Alanine Aminotransfer (ALT/SGP 161 U/L (12-78); Albumin, Blood 2.8 g/dL (3.4-5.0); Albumin/Globulin Ratio 0.7 (0.8-1.8); Alk Phos 85 U/L (50-136); Anion Gap 1 mmol/L (6-16); Aspartate Aminotrans (AST/SGOT 55 U/L (12-37); Bilirubin, Total 0.4 mg/dL (0.1-1.0); Blood Urea Nitrogen 11 mg/dL (8-24); Bun/Creatinine Ratio 21.2 (12.0-20.0); CO2, Blood 43 mmol/L (21-32); Chloride, Blood 97 mmol/L (98-108); Creatinine, Blood 0.52 mg/dL (0.60-1.20); Glomerular Filtration Rate >60 (60-); Glucose, Blood 158 mg/dL (70-99); Potassium, Blood 4.1 mmol/L (3.5-5.5); Sodium, Blood 141 mmol/L (136-145); Total Protein, Blood 6.8 g/dL (6.4-8.2)
--- NOTE | 2020-09-30 13:39 | NUR ---
TODAYS LABS RESULTS FAXED TO DR. DIEGO FLORES.
== END 2020-09-30 11:42 | disposition home or self-care (01) ==
LOC: ATC 00:16
PROVIDERS: Naturopath
DX: Z48.00 Encounter for change or removal of nonsurgical wound dressing (principal); A44.9 Bartonellosis, unspecified; G12.21 Amyotrophic lateral sclerosis; A69.20 Lyme disease, unspecified; M62.81 Muscle weakness (generalized); G47.30 Sleep apnea, unspecified; R13.10 Dysphagia, unspecified; R25.3 Fasciculation; Z86.73 Personal history of transient ischemic attack (TIA), and cerebral infarction without residual deficits; Z79.899 Other long term (current) drug therapy; Z79.01 Long term (current) use of anticoagulants; Z79.82 Long term (current) use of aspirin; Z20.822 Contact with and (suspected) exposure to COVID-19; Z88.8 Allergy status to other drugs, medicaments and biological substances
CPT/HCPCS: 36592; 80053; 85025

== ENCOUNTER 2020-10-09 01:46 | Day surgery (SDC) | payer SELFPAY ==
[2020-10-09 10:15] LABS: BASOPHILS ABSOLUTE AUTO 0.03 K/mm3 (0.00-0.23); BASOPHILS PERCENT AUTO 0 % (0-2); EOSINOPHILS ABSOLUTE AUTO 0.04 K/mm3 (0.00-0.68); EOSINOPHILS PERCENT AUTO 1 % (0-6); Hemoglobin 14.1 g/dL (13.5-17.5); IMMATURE GRAN ABSOLUTE AUTO 0.02 K/mm3 (0.00-0.10); IMMATURE GRAN PERCENT AUTO 0 % (0-1); LYMPHOCYTES ABSOLUTE AUTO 1.36 K/mm3 (0.84-5.20); LYMPHOCYTES PERCENT AUTO 16 % (21-46); MONOCYTES ABSOLUTE AUTO 0.79 K/mm3 (0.16-1.47); MONOCYTES PERCENT AUTO 9 % (4-13); Mean Corpuscular HGB 31.8 pg (26.0-34.0); Mean Corpuscular HGB Conc 30.7 g/dL (31.5-36.5); Mean Corpuscular Volume 104 fL (80-100); Mean Platelet Volume 11.1 fL (9.1-12.4); NEUTROPHILS ABSOLUTE AUTO 6.36 K/mm3 (1.96-9.15); NEUTROPHILS PERCENT AUTO 74 % (41-73); Platelet Count 347 K/mm3 (150-400); RDW Coefficient Variation 12.8 % (11.7-14.2); RDW Standard Deviation 49.1 fL (35.1-46.3); Red Blood Cell Count 4.44 M/mm3 (4.30-5.90)
[2020-10-09 10:34] LABS: Alanine Aminotransfer (ALT/SGP 100 U/L (12-78); Albumin, Blood 3.2 g/dL (3.4-5.0); Albumin/Globulin Ratio 0.8 (0.8-1.8); Alk Phos 78 U/L (50-136); Anion Gap 0 mmol/L (6-16); Aspartate Aminotrans (AST/SGOT 29 U/L (12-37); Bilirubin, Total 0.3 mg/dL (0.1-1.0); Blood Urea Nitrogen 11 mg/dL (8-24); Bun/Creatinine Ratio 19.6 (12.0-20.0); CO2, Blood 43 mmol/L (21-32); Calcium, Blood 9.5 mg/dL (8.5-10.1); Chloride, Blood 97 mmol/L (98-108); Creatinine, Blood 0.56 mg/dL (0.60-1.20); Globulin, Blood 4.1 g/dL (2.2-4.0); Glomerular Filtration Rate >60 (60-); Glucose, Blood 106 mg/dL (70-99); Potassium, Blood 4.3 mmol/L (3.5-5.5); Sodium, Blood 140 mmol/L (136-145); Total Protein, Blood 7.3 g/dL (6.4-8.2)
== END 2020-10-09 10:55 | disposition home or self-care (01) ==
LOC: ATC 01:46
PROVIDERS: Naturopath
DX: Z45.2 Encounter for adjustment and management of vascular access device (principal); G12.21 Amyotrophic lateral sclerosis; G47.30 Sleep apnea, unspecified; Z86.19 Personal history of other infectious and parasitic diseases; Z86.73 Personal history of transient ischemic attack (TIA), and cerebral infarction without residual deficits; Z87.81 Personal history of (healed) traumatic fracture; Z79.899 Other long term (current) drug therapy; Z79.82 Long term (current) use of aspirin; Z88.8 Allergy status to other drugs, medicaments and biological substances
CPT/HCPCS: 36592; 80053; 85025

== ENCOUNTER 2020-10-14 00:32 | Day surgery (SDC) | payer SELFPAY ==
[2020-10-14 12:01] LABS: BASOPHILS ABSOLUTE AUTO 0.04 K/mm3 (0.00-0.23); BASOPHILS PERCENT AUTO 0 % (0-2); EOSINOPHILS ABSOLUTE AUTO 0.09 K/mm3 (0.00-0.68); EOSINOPHILS PERCENT AUTO 1 % (0-6); Hematocrit 43.7 % (37.0-53.0); Hemoglobin 13.2 g/dL (13.5-17.5); IMMATURE GRAN ABSOLUTE AUTO 0.05 K/mm3 (0.00-0.10); IMMATURE GRAN PERCENT AUTO 1 % (0-1); LYMPHOCYTES ABSOLUTE AUTO 1.45 K/mm3 (0.84-5.20); LYMPHOCYTES PERCENT AUTO 14 % (21-46); MONOCYTES ABSOLUTE AUTO 0.79 K/mm3 (0.16-1.47); MONOCYTES PERCENT AUTO 8 % (4-13); Mean Corpuscular HGB 31.4 pg (26.0-34.0); Mean Corpuscular HGB Conc 30.2 g/dL (31.5-36.5); Mean Corpuscular Volume 104 fL (80-100); Mean Platelet Volume 11.4 fL (9.1-12.4); NEUTROPHILS ABSOLUTE AUTO 8.03 K/mm3 (1.96-9.15); NEUTROPHILS PERCENT AUTO 77 % (41-73); Platelet Count 309 K/mm3 (150-400); RDW Coefficient Variation 12.8 % (11.7-14.2); RDW Standard Deviation 49.5 fL (35.1-46.3); White Blood Cell Count 10.45 K/mm3 (4.00-11.30)
[2020-10-14 12:18] LABS: Alanine Aminotransfer (ALT/SGP 79 U/L (12-78); Albumin, Blood 2.9 g/dL (3.4-5.0); Albumin/Globulin Ratio 0.8 (0.8-1.8); Alk Phos 75 U/L (50-136); Anion Gap 1 mmol/L (6-16); Aspartate Aminotrans (AST/SGOT 27 U/L (12-37); Bilirubin, Total 0.3 mg/dL (0.1-1.0); Blood Urea Nitrogen 14 mg/dL (8-24); CO2, Blood 42 mmol/L (21-32); Chloride, Blood 98 mmol/L (98-108); Creatinine, Blood 0.56 mg/dL (0.60-1.20); Globulin, Blood 3.7 g/dL (2.2-4.0); Glomerular Filtration Rate >60 (60-); Glucose, Blood 100 mg/dL (70-99); Sodium, Blood 141 mmol/L (136-145); Total Protein, Blood 6.6 g/dL (6.4-8.2)
--- NOTE | 2020-10-14 12:22 | NUR ---
LAB RESULTS FAXED TO DR DIEGO FLORES
== END 2020-10-14 11:35 | disposition home or self-care (01) ==
LOC: ATC 00:32
PROVIDERS: Naturopath
DX: Z48.00 Encounter for change or removal of nonsurgical wound dressing (principal); A44.9 Bartonellosis, unspecified; A69.20 Lyme disease, unspecified; G12.21 Amyotrophic lateral sclerosis; M62.81 Muscle weakness (generalized); R13.10 Dysphagia, unspecified; G47.30 Sleep apnea, unspecified; Z79.899 Other long term (current) drug therapy; Z86.73 Personal history of transient ischemic attack (TIA), and cerebral infarction without residual deficits; Z88.8 Allergy status to other drugs, medicaments and biological substances; Z79.82 Long term (current) use of aspirin; Z20.822 Contact with and (suspected) exposure to COVID-19
CPT/HCPCS: 36592; 80053; 85025

== ENCOUNTER 2020-10-21 00:07 | Day surgery (SDC) | payer SELFPAY ==
[2020-10-21] MEDS ORDERED: PREG75 PO (11:24)
[2020-10-21] MEDS ORDERED: CBD PR (11:27)
[2020-10-21 11:36] LABS: BASOPHILS ABSOLUTE AUTO 0.04 K/mm3 (0.00-0.23); BASOPHILS PERCENT AUTO 1 % (0-2); EOSINOPHILS ABSOLUTE AUTO 0.08 K/mm3 (0.00-0.68); EOSINOPHILS PERCENT AUTO 1 % (0-6); Hemoglobin 13.7 g/dL (13.5-17.5); IMMATURE GRAN ABSOLUTE AUTO 0.02 K/mm3 (0.00-0.10); IMMATURE GRAN PERCENT AUTO 0 % (0-1); LYMPHOCYTES ABSOLUTE AUTO 1.41 K/mm3 (0.84-5.20); LYMPHOCYTES PERCENT AUTO 16 % (21-46); MONOCYTES ABSOLUTE AUTO 0.88 K/mm3 (0.16-1.47); MONOCYTES PERCENT AUTO 10 % (4-13); Mean Corpuscular HGB 32.7 pg (26.0-34.0); Mean Corpuscular HGB Conc 31.1 g/dL (31.5-36.5); Mean Corpuscular Volume 105 fL (80-100); Mean Platelet Volume 10.9 fL (9.1-12.4); NEUTROPHILS ABSOLUTE AUTO 6.19 K/mm3 (1.96-9.15); NEUTROPHILS PERCENT AUTO 72 % (41-73); Platelet Count 317 K/mm3 (150-400); RDW Standard Deviation 50.4 fL (35.1-46.3); Red Blood Cell Count 4.19 M/mm3 (4.30-5.90); White Blood Cell Count 8.62 K/mm3 (4.00-11.30)
[2020-10-21 11:56] LABS: Alanine Aminotransfer (ALT/SGP 69 U/L (12-78); Albumin/Globulin Ratio 0.8 (0.8-1.8); Alk Phos 78 U/L (50-136); Anion Gap 1 mmol/L (6-16); Aspartate Aminotrans (AST/SGOT 29 U/L (12-37); Bilirubin, Total 0.4 mg/dL (0.1-1.0); Blood Urea Nitrogen 11 mg/dL (8-24); Bun/Creatinine Ratio 20.2 (12.0-20.0); CO2, Blood 42 mmol/L (21-32); Calcium, Blood 9.4 mg/dL (8.5-10.1); Chloride, Blood 99 mmol/L (98-108); Creatinine, Blood 0.54 mg/dL (0.60-1.20); Glomerular Filtration Rate >60 (60-); Glucose, Blood 79 mg/dL (70-99); Potassium, Blood 4.5 mmol/L (3.5-5.5); Sodium, Blood 142 mmol/L (136-145)
--- NOTE | 2020-10-21 12:10 | NUR ---
Lab results from today faxed to Dr. Castillo's office.
== END 2020-10-21 11:11 | disposition home or self-care (01) ==
LOC: ATC 00:07
PROVIDERS: Naturopath
DX: Z48.01 Encounter for change or removal of surgical wound dressing (principal); G12.21 Amyotrophic lateral sclerosis; A44.9 Bartonellosis, unspecified; A69.20 Lyme disease, unspecified; Z88.8 Allergy status to other drugs, medicaments and biological substances
CPT/HCPCS: 36592; 80053; 85025

== ENCOUNTER 2020-10-30 15:59 | Inpatient (IN) | payer MEDICARE ==
[~2020-10-30] VITALS: Ht 182.9 cm; Wt 83.0 kg
[~2020-10-30 15:59] MED LIST changes: +CBD PR; +PREG75 PO
[2020-10-30 16:22] LABS: BASOPHILS ABSOLUTE AUTO 0.01 K/mm3 (0.00-0.23); BASOPHILS PERCENT AUTO 0 % (0-2); EOSINOPHILS ABSOLUTE AUTO 0.01 K/mm3 (0.00-0.68); EOSINOPHILS PERCENT AUTO 0 % (0-6); Hematocrit 43.7 % (37.0-53.0); IMMATURE GRAN ABSOLUTE AUTO 0.02 K/mm3 (0.00-0.10); IMMATURE GRAN PERCENT AUTO 0 % (0-1); LYMPHOCYTES ABSOLUTE AUTO 0.55 K/mm3 (0.84-5.20); LYMPHOCYTES PERCENT AUTO 8 % (21-46); MONOCYTES ABSOLUTE AUTO 0.77 K/mm3 (0.16-1.47); MONOCYTES PERCENT AUTO 11 % (4-13); Mean Corpuscular HGB 31.6 pg (26.0-34.0); Mean Corpuscular HGB Conc 29.7 g/dL (31.5-36.5); Mean Corpuscular Volume 106 fL (80-100); Mean Platelet Volume 10.8 fL (9.1-12.4); NEUTROPHILS ABSOLUTE AUTO 5.61 K/mm3 (1.96-9.15); NEUTROPHILS PERCENT AUTO 81 % (41-73); Platelet Count 281 K/mm3 (150-400); RDW Coefficient Variation 12.4 % (11.7-14.2); RDW Standard Deviation 48.7 fL (35.1-46.3); Red Blood Cell Count 4.12 M/mm3 (4.30-5.90); White Blood Cell Count 6.97 K/mm3 (4.00-11.30)
[2020-10-30 16:29] LABS: PCO2 Arterial 51.4 mmHg (35-45); PO2 Arterial 455 mmHg (80-100); pH Blood Arterial 7.53 (7.35-7.45)
[2020-10-30] MEDS ORDERED: Robaxin750 MG PT (16:29)
[2020-10-30] MEDS ORDERED: RILUZOLE50 MG PT (16:30)
[2020-10-30] MEDS ORDERED: NYSTATIN500000 UNI PO (16:32)
[2020-10-30] MEDS ORDERED: DEPO-TESTO200 MG/1 M IM (16:36)
[2020-10-30 16:43] LABS: Alanine Aminotransfer (ALT/SGP 141 U/L (12-78); Albumin, Blood 2.7 g/dL (3.4-5.0); Albumin/Globulin Ratio 0.7 (0.8-1.8); Alk Phos 81 U/L (50-136); Anion Gap 0 mmol/L (6-16); Aspartate Aminotrans (AST/SGOT 50 U/L (12-37); Bilirubin, Total 0.3 mg/dL (0.1-1.0); Blood Urea Nitrogen 16 mg/dL (8-24); Bun/Creatinine Ratio 28.6 (12.0-20.0); CO2, Blood 43 mmol/L (21-32); Calcium, Blood 8.8 mg/dL (8.5-10.1); Chloride, Blood 95 mmol/L (98-108); Creatinine, Blood 0.56 mg/dL (0.60-1.20); Globulin, Blood 3.7 g/dL (2.2-4.0); Glomerular Filtration Rate >60 (60-); Glucose, Blood 97 mg/dL (70-99); Potassium, Blood 5.2 mmol/L (3.5-5.5); Sodium, Blood 138 mmol/L (136-145); Total Protein, Blood 6.4 g/dL (6.4-8.2)
[2020-10-30] MEDS ORDERED: Prinivil10 MG PT (17:45)
[2020-10-30] MEDS ORDERED: DEXA1 PO (17:47)
[2020-10-30] MEDS ORDERED: Flonase 0.05% N16 GM (17:57)
[2020-10-30] MEDS ORDERED: [UNRECOGNIZED DRUG - OTHER] PO (17:57)
[2020-10-30] MEDS ORDERED: [UNRECOGNIZED DRUG - OTHER] PO (17:58)
[2020-10-30] MEDS ORDERED: MEXITIL PO (17:58)
[2020-10-30] MEDS ORDERED: Aspirin EC81 MG PT (18:26)
[2020-10-30] MEDS ORDERED: MINOCYCLINE HC100 M1 PO (18:35)
[2020-10-30] MEDS ORDERED: RIFA300 PO (18:37)
[2020-10-30] MEDS ORDERED: Ondansetron Odt8 MG SL (18:38)
--- NOTE | 2020-10-31 01:17 | NUR ---
ASSUMED PT CARE AT 2004 PT ARRIVED ON UNIT FROM ED ON [facility]. PROPOFOL AT 20MCG/KG/MIN WITH EYES OPEN SPONTANEOUSLY; PT ABLE TO NOD HEAD YES/NO TO QUESTIONS; HOWEVER, UNABLE TO SQUEEZE HANDS OR MOVE UPON COMMAND. 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 THEREFORE, BILATERAL SOFT WRIST RESTRAINTS PLACED TO PROTECT VITAL TUBES/LINES IN CASE OF SELF EXTUBATION. ETT 7.0. 27CM AT THE TEETH. PT PRODUCING COPIOUS AMOUNTS OF ORAL SECRETIONS. NO COUGH/GAG REFLEX NOTED. PT JUST GRIMACES WITH SUCTIONING. VENT SETTINGS AC 12, VT 400, PEEP 5, FIO2 30%. PROPOFOL NOW AT 40MCG/KG/MIN. PT MEDICATED X1 WITH MORPHINE PER ORDERS; HOWEVER, BP'S DID NOT TOLERATE. PRIOR TO MEDICATING SBP WAS 118; HOWEVER, PT QUICKLY DROPPED SBP OF 70'S. THEREFORE, DR. KOHLER CALLED WITH ORDERS TO GIVE 1L BOLUS OF LR, FOLLOWED BY MAINTENANCE RATE OF 100ML/HR, AND CHANGE MORPHINE ORDERS FROM 5MG Q4PRN TO 2.5-5MG Q4PRN. BP HAS NOW STABILIZED, PROPOFOL BACK TO 40MCG/KG/MIN. PT REMAINS EASILY AROUSABLE WITH NOXIOUS STIMULI. VSS AT THIS TIME, SEE FLOWSHEET.
[2020-10-31 02:36] LABS: Source, Urine Catheter
[2020-10-31 02:42] LABS: Bilirubin, Urine Neg (Neg); Blood, Urine Neg (Neg); Glucose Qualitative, Urine Neg (Neg); Ketones, Urine 1+ (Neg); Leukocyte Esterase, Urine 1+ (Neg); Nitrite, Urine Neg (Neg); Protein, Urine 1+ (Neg); Urobilinogen, Urine NORM (Normal)
[2020-10-31 02:48] LABS: Appearance, Urine Clear (Clear); Color, Urine Yellow (P-Yellow)
[2020-10-31 02:50] LABS: Bacteria Few /hpf; Red Blood Cells, Urine 0-2 /hpf (0-2); Squamous Epithelial Cells Not Seen /hpf (Few)
[2020-10-31 03:37] LABS: BASOPHILS PERCENT AUTO 0 % (0-2); EOSINOPHILS PERCENT AUTO 0 % (0-6); Hematocrit 37.1 % (37.0-53.0); Hemoglobin 11.5 g/dL (13.5-17.5); IMMATURE GRAN ABSOLUTE AUTO 0.05 K/mm3 (0.00-0.10); IMMATURE GRAN PERCENT AUTO 1 % (0-1); LYMPHOCYTES ABSOLUTE AUTO 0.86 K/mm3 (0.84-5.20); LYMPHOCYTES PERCENT AUTO 8 % (21-46); MONOCYTES ABSOLUTE AUTO 0.79 K/mm3 (0.16-1.47); MONOCYTES PERCENT AUTO 7 % (4-13); Mean Corpuscular HGB 31.7 pg (26.0-34.0); Mean Corpuscular Volume 102 fL (80-100); Mean Platelet Volume 10.7 fL (9.1-12.4); NEUTROPHILS ABSOLUTE AUTO 9.12 K/mm3 (1.96-9.15); NEUTROPHILS PERCENT AUTO 84 % (41-73); Platelet Count 233 K/mm3 (150-400); RDW Coefficient Variation 13.1 % (11.7-14.2); Red Blood Cell Count 3.63 M/mm3 (4.30-5.90); White Blood Cell Count 10.82 K/mm3 (4.00-11.30)
[2020-10-31 03:52] LABS: Anion Gap 3 mmol/L (6-16); Blood Urea Nitrogen 16 mg/dL (8-24); Bun/Creatinine Ratio 22.6 (12.0-20.0); CO2, Blood 36 mmol/L (21-32); Calcium, Blood 8.3 mg/dL (8.5-10.1); Chloride, Blood 101 mmol/L (98-108); Creatinine, Blood 0.71 mg/dL (0.60-1.20); Glomerular Filtration Rate >60 (60-); Glucose, Blood 101 mg/dL (70-99); Phosphorus, Blood 1.7 mg/dL (2.5-4.9); Potassium, Blood 4.7 mmol/L (3.5-5.5); Sodium, Blood 140 mmol/L (136-145)
--- NOTE | 2020-10-31 04:53 | NUR ---
END OF SHIFT SUMMARY NO SIGNIFICANT CHANGES SINCE LAST ENTRY. PROPOFOL TITRATED DOWN TO 20 MCG/KG/MIN D/T SOFT BP'S. LR INFUSING AT 100MLS/HR. PT ABLE TO OPEN EYES AND NOD YES/NO TO QUESTIONS. STILL NO GAG/COUGH REFLEX, WELL UNABLE TO SQUEEZE HANDS UPON COMMAND. GROSS MOTOR MOVEMENT NOTED TO ALL EXTREMITIES; THEREFORE, PT REMAINS IN BILATERAL SOFT WRIST RESTRAINTS. [place]KE[place] CATHETER IS PATENT AND DRAINING DARK, CLEAR YELLOW URINE TO GRAVITY. WILL CONTINUE TO MONITOR UNTIL REPORT IS HANDED OFF TO ONCOMING RN.
[2020-10-31 05:12] LABS: PCO2 Arterial 46.6 mmHg (35-45); PO2 Arterial 84.3 mmHg (80-100); pH Blood Arterial 7.52 (7.35-7.45)
--- NOTE | 2020-10-31 07:22 | NUR ---
ASSUMED CARE RECEIVED REPORT FROM DELROY DOTSON. PT SEDATED ON PROPOFOL 30 MCG/KG/MIN; AND HAS NS INFUSING AT 100 ML/HR. INTUBATED ON VENT AT AC12/400/5/30%, WITH AN 7.0 ETT. HE IS IN SINUS TACH, 107; STABLE BP, MAP > 65, SPO2 97%, HE IS BREATHING OVER THE VENT AT 16/min; TEMP 100.2. HE HAS A PATENT MCKEON DRAINING LIGHT YELLOW (ALMOST PALE GREEN) URINE. OG TUBE CONNECTED TO LIS. CURRENT URSZULA OF 3. BED LOW AND LOCKED.
--- NOTE | 2020-10-31 09:00 | NUR ---
UPDATE//GOSMAN PT AWAKE, STRUGGLING TO COMMUNICATE, PROPOFOL WAS PUT ON STANDBY. AT BEDSIDE NOW, GOSMAN HAS EXPLAINED CURRENT OPTIONS TO AND PT. CONSIDERING EXTUBATION SO HE CAN TALK AND STATE HIS WISHES.
--- NOTE | 2020-10-31 10:00 | NUR ---
UPDATE PT AND DECIDED ON EXTUBATION, SO TRUE (PT) CAN TALK TO EVERYONE AND STATE WHAT HIS WISHES ARE. EXTUBATED AT ~0930, PLACED ON 2L NC. PT COMPLETELY ALERT AND ORIENTED X 4, BUT IS VERY WEAK, USING ACCESSORY MUSCLES, WORKING HARD TO BREATHE. AFTER TALKING TO THE PT ABOUT WHAT HE WANTS IT WAS DETERMINED THAT HE DID NOT WANT TO BE PUT ON A CPAP/BIPAP, HE WAS READY FOR , AND HE WANTED MEDICATIONS TO MAKE HIM FEEL COMFORTABLE. HE STATED THAT HE WANTED TO KNOW IF DR. KOHLER WAS "SAVED BY GOD", AND HE WANTED HIS TO READ HIM SCRIPTURES AT THE BEDSIDE. HE WAS ABLE TO SHARE A BIT OF TIME CONSCIOUSLY WITH , ENOUGH TIME TO SAY GOODBYE. AFTER A FEW MINUTES THE PT STARTED THRASHING AROUND IN BED, SKIN COLOR TURNING ASHEN/BOLTON, AND HE WAS UNABLE TO COMMUNICATE ANY MORE. COMFORT CARE ORDERS HAD JUST BEEN PLACED, MORPHINE AND ATIVAN GIVEN. WILL CONTINUE TO MONITOR. .
--- NOTE | 2020-10-31 11:45 | NUR ---
UPDATE AFTER A FEW DOSES OF MORPHINE, AND ATIVAN, AND SOME ROXENOL. PT APPEARED MUCH MORE COMFORTABLE, STILL UNABLE TO COMMUNICATE, BUT NO THRASHING AROUND. PT HAS OCCASSIONAL "GUPPY-LIKE" BREATHING. CPOT 0. NO STRUGGLING. WILL CONTINUE TO MEDICATE NEEDED. AT BEDSIDE. 2L OF OXYGEN, VIA NC, STILL ON PT FOR COMFORT. HAPPY WITH PT POSITIONING, AND DOESN'T WANT HIM REPOSITIONED ANYMORE.
--- NOTE | 2020-10-31 14:06 | NUR ---
UPDATE PT STARTED TO SHABANA DOWN TO A RATE IN THE 30s FOR A FEW MINUTES, BEFORE BRADYING DOWN TO AYSTOLE. AT 1404 PT WAS IN AYSTOLE, AND NO HEART SOUNDS WERE AUSCULTATED.
--- NOTE | 2020-10-31 17:00 | NUR ---
Provided comfort, post-mordem guidence, prayer and counselor [employer] to spouse at bedside. She reports a deep hazel and peace with Bobby's passing. she feels well loved and supported by her sons and friends. [facility] was selected for arrangements.
--- NOTE | 2020-10-31 17:39 | NUR ---
PICC, MCKEON, TELEMETRY LEADS, ETC.. REMOVED. PEG TUBE
== END 2020-10-31 14:04 | DRG 208 ==
LOC: ER 15:59 → ICUW 19:21
PROVIDERS: Internal Medicine Critical Care Medicine; Student in an Organized Health Care Education/Training Program; ADMIT Internal Medicine
PROC: 5A1935Z Respiratory Ventilation, Less than 24 Consecutive Hours (ICD-10-PCS; principal; 2020-10-30)
DX: J96.21 Acute and chronic respiratory failure with hypoxia (principal); J69.0 Pneumonitis due to inhalation of food and vomit; G12.21 Amyotrophic lateral sclerosis; J96.22 Acute and chronic respiratory failure with hypercapnia; I10 Essential (primary) hypertension; Z51.5 Encounter for palliative care; K21.9 Gastro-esophageal reflux disease without esophagitis; Z79.82 Long term (current) use of aspirin; Z93.1 Gastrostomy status; Z86.73 Personal history of transient ischemic attack (TIA), and cerebral infarction without residual deficits; G47.33 Obstructive sleep apnea (adult) (pediatric); Z78.1 Physical restraint status
CPT/HCPCS: 31720; 36415; 36592; 36600; 51702; 71045; 80048; 80053; 81001; 82803; 83605; 83735; 84100; 84145; 84484; 85025; 87086; 93005; 93010; 94002; 94003; 96361-59; 96365-59; 96375-59; 99285-25; A9270; J1650; J1720; J2060; J2270; J2543; J2704; J7030; J7120